=== PATIENT | female | born 1965 | race Caucasian/White ===

== ENCOUNTER 2021-08-20 06:53 | Outpatient (CLI) | payer OTHER, SELFPAY ==
[2021-08-20 07:24] LABS: Basophils Percent Auto 0.8 % (0.2-1.2); Eosinophils Absolute Auto 0.1 K/mm3 (0-0.3); Eosinophils Percent Auto 2.3 % (0-4.4); Hematocrit 41.1 % (37.0-47.0); Hemoglobin 13.5 g/dL (12.0-15.0); Hemoglobin A1C 8.9 % (<5.7); Immature Granulocyte Absolute 0.03 K/mm3 (0.00-0.031); Immature Granulocyte Percent A 0.6 % (0-0.5); Immature Platelet Fraction Pct 4.3 % (0.9-11.2); Lymphocytes Absolute Auto 1.61 K/mm3 (0.9-3.2); Lymphocytes Percent Auto 31.1 % (18.3-44.2); Mean Corpuscular HGB Conc 32.8 g/dl (32-36); Mean Corpuscular Hemoglobin 31.3 pg (26-34); Mean Corpuscular Volume 95.1 fl (80-100); Mean Platelet Volume 10.4 fl (7.4-10.4); Monocytes Absolute Auto 0.3 K/mm3 (0.1-0.6); Monocytes Percent Auto 6.2 % (2.6-8.5); Neutrophils Absolute Auto 3.1 K/mm3 (1.3-6.7); Platelet Count Result 134 k/mm3 (150-375); Red Blood Count 4.32 M/mm3 (4.2-5.4); Red Cell Distribution Width 13.2 % (11.5-14.5); White Blood Count 5.2 K/mm3 (4.5-10.0)
[2021-08-20 07:26] LABS: Prothrombin Time 13.4 Seconds (11.1-14.7)
[2021-08-20 07:28] LABS: Alanine Aminotransferase 122 U/L (4-35); Albumin Level 4.4 g/dL (3.5-5.1); Alkaline Phosphatase 136 U/L (38-126); Anion Gap 11 mmol/L (8-16); Aspartate Amino Transferase 103 U/L (14-36); Bilirubin,Total 0.6 mg/dL (0.2-1.3); Blood Urea Nitrogen 16 mg/dL (7-17); Carbon Dioxide 25 mmol/L (22-30); Chloride 98 mmol/L (98-107); Estimated Glomerular Filt Rate > 60; Glucose 295 mg/dL (65-110); Potassium 4.3 mmol/L (3.4-5.0); Sodium 134 mmol/L (137-145)
== END 2021-08-20 06:54 | disposition home or self-care (01) ==
PROVIDERS: PCP Family Medicine; Referring Provider Family Medicine; Visit Provider Internal Medicine Gastroenterology
DX: E11.9 Type 2 diabetes mellitus without complications (principal); I10 Essential (primary) hypertension; R53.83 Other fatigue; K76.0 Fatty (change of) liver, not elsewhere classified; R74.8 Abnormal levels of other serum enzymes
CPT/HCPCS: 36415; 80053; 83036; 84443; 85025; 85055; 85610

== ENCOUNTER 2021-09-20 06:34 | Outpatient (CLI) | payer OTHER, SELFPAY ==
[2021-09-20 07:59] LABS: Cholesterol 160 mg/dL (0-200); HDL Direct 26 mg/dL; Triglycerides 201 mg/dL (<150)
[2021-09-20 08:10] LABS: LDL Cholesterol Direct 96 mg/dL
[2021-09-20 08:12] LABS: Microalbumin Urine Random 9.3 mg/L (0-16.7)
[2021-09-20 08:15] LABS: Creatinine Urine 149.8 mg/dL; MALB Creatinine Ratio 6.2 mg/g (0-30)
== END 2021-09-20 06:35 | disposition home or self-care (01) ==
PROVIDERS: PCP Family Medicine; Visit Provider Internal Medicine Endocrinology, Diabetes & Metabolism
DX: E11.65 Type 2 diabetes mellitus with hyperglycemia (principal)
CPT/HCPCS: 36415; 80061; 82043

== ENCOUNTER 2021-11-29 11:42 | Outpatient (CLI) | payer OTHER, SELFPAY ==
[2021-11-29 12:27] LABS: Immunoglobulin A 307 mg/dL (70-400)
[2021-12-03 11:45] LABS: Tissue Transglutaminase IgA Ab 40.7 U/mL (<15.0)
[2021-12-03 20:56] LABS: Endomysial Ab (IgA) Screen Negative (Negative)
[2021-12-06 14:11] LABS: Endomysial Additional Testing Not Indicated
== END 2021-11-29 11:43 | disposition home or self-care (01) ==
LOC: ANHLAB 11:53
PROVIDERS: PCP Family Medicine
DX: K90.0 Celiac disease (principal)
CPT/HCPCS: 36415; 82784; 83516; 86255

== ENCOUNTER 2021-12-18 08:00 | Outpatient (RCR) | payer OTHER, SELFPAY ==
[2021-12-18 08:00] VITALS: BMI 26.9
[2021-12-18 08:04] VITALS: BMI 26.9
== END 2022-02-25 09:58 | disposition home or self-care (01) ==
LOC: ANHDMC 08:00
PROVIDERS: PCP Family Medicine; Visit Provider Nurse Practitioner Family
DX: E11.65 Type 2 diabetes mellitus with hyperglycemia (principal); Z71.89 Other specified counseling; Z71.3 Dietary counseling and surveillance
CPT/HCPCS: 97802; G0108

== ENCOUNTER 2022-02-14 12:03 | Outpatient (CLI) | payer OTHER, SELFPAY ==
[2022-02-14 13:05] LABS: Basophils Absolute Auto 0.1 K/mm3 (0.0-0.1); Basophils Percent Auto 0.7 % (0.2-1.2); Eosinophils Absolute Auto 0.1 K/mm3 (0-0.3); Eosinophils Percent Auto 1.5 % (0-4.4); Hematocrit 39.8 % (37.0-47.0); Hemoglobin 13.3 g/dL (12.0-15.0); Immature Granulocyte Absolute 0.02 K/mm3 (0.00-0.031); Immature Granulocyte Percent A 0.3 % (0-0.5); Lymphocytes Absolute Auto 2.15 K/mm3 (0.9-3.2); Lymphocytes Percent Auto 29.8 % (18.3-44.2); Mean Corpuscular HGB Conc 33.4 g/dl (32-36); Mean Corpuscular Hemoglobin 30.7 pg (26-34); Mean Corpuscular Volume 91.9 fl (80-100); Mean Platelet Volume 10.5 fl (7.4-10.4); Monocytes Absolute Auto 0.6 K/mm3 (0.1-0.6); Monocytes Percent Auto 8.2 % (2.6-8.5); Neutrophils Absolute Auto 4.3 K/mm3 (1.3-6.7); Neutrophils Percent Auto 59.5 % (45.5-73.1); Platelet Count Result 160 k/mm3 (150-375); Red Blood Count 4.33 M/mm3 (4.2-5.4); Red Cell Distribution Width 13.4 % (11.5-14.5); White Blood Count 7.2 K/mm3 (4.5-10.0)
[2022-02-14 13:16] LABS: INR 1.1; Prothrombin Time 13.8 Seconds (11.1-14.7)
[2022-02-14 13:31] LABS: Alanine Aminotransferase 40 U/L (6-35); Albumin Level 4.7 g/dL (3.5-5.1); Alkaline Phosphatase 76 U/L (38-126); Anion Gap 10 mmol/L (8-16); Aspartate Amino Transferase 43 U/L (14-36); Bilirubin,Total 0.7 mg/dL (0.2-1.3); Blood Urea Nitrogen 11 mg/dL (7-17); Calcium 9.8 mg/dL (8.4-10.2); Carbon Dioxide 32 mmol/L (22-30); Chloride 94 mmol/L (98-107); Estimated Glomerular Filt Rate > 60; Glucose 99 mg/dL (65-110); Potassium 3.4 mmol/L (3.4-5.0); Sodium 136 mmol/L (137-145)
[2022-02-19 17:37] LABS: Alpha Fetoprotein Tumor Marker 1.9 ng/mL (<6.1)
== END 2022-02-14 12:04 | disposition home or self-care (01) ==
LOC: ANHLAB 12:07
PROVIDERS: PCP Family Medicine; Visit Provider Family Medicine
DX: K75.81 Nonalcoholic steatohepatitis (NASH) (principal)
CPT/HCPCS: 36415; 80053; 82105; 85025; 85610

== ENCOUNTER 2022-08-27 06:34 | Outpatient (CLI) | payer OTHER, SELFPAY ==
[2022-08-27 07:31] LABS: Hematocrit 43.6 % (37.0-47.0); Hemoglobin 14.2 g/dL (12.0-15.0); Mean Corpuscular HGB Conc 32.6 g/dl (32-36); Mean Corpuscular Hemoglobin 29.8 pg (26-34); Mean Corpuscular Volume 91.6 fl (80-100); Mean Platelet Volume 9.9 fl (7.4-10.4); Platelet Count Result 164 k/mm3 (150-375); Red Blood Count 4.76 M/mm3 (4.2-5.4); Red Cell Distribution Width 13.7 % (11.5-14.5); White Blood Count 7.3 K/mm3 (4.5-10.0)
[2022-08-27 07:40] LABS: Alanine Aminotransferase 29 U/L (6-35); Albumin Level 4.7 g/dL (3.5-5.1); Alkaline Phosphatase 73 U/L (38-126); Anion Gap 6 mmol/L (8-16); Aspartate Amino Transferase 35 U/L (14-36); Blood Urea Nitrogen 13 mg/dL (7-17); Calcium 9.8 mg/dL (8.4-10.2); Carbon Dioxide 31 mmol/L (22-30); Chloride 104 mmol/L (98-107); Cholesterol 103 mg/dL (0-200); Estimated Glomerular Filt Rate > 60; Glucose 116 mg/dL (65-110); HDL Direct 37 mg/dL; Potassium 4.8 mmol/L (3.4-5.0); Sodium 141 mmol/L (137-145); Triglycerides 168 mg/dL (<150)
[2022-08-27 07:51] LABS: LDL Cholesterol Direct 42 mg/dL
[2022-08-27 08:06] LABS: Creatinine Urine 159.5 mg/dL
[2022-08-27 08:10] LABS: Thyroid Stimulating Hormone 0.697 uIU/mL (0.465-4.680)
[2022-08-27 08:11] LABS: MALB Creatinine Ratio 7.2 mg/g (0-30); Microalbumin Urine Random 11.5 mg/L (0-16.7)
[2022-08-27 08:21] LABS: Free T4 Free Thyroxine 1.08 ng/mL (0.78-2.19); Vitamin D 25 Hydroxy 27.1 ng/mL
[2022-08-31 17:27] LABS: Alpha Fetoprotein Tumor Marker 2.4 ng/mL (<6.1)
== END 2022-08-27 06:35 | disposition home or self-care (01) ==
PROVIDERS: PCP Nurse Practitioner Family; Referring Provider Internal Medicine Gastroenterology; Visit Provider Nurse Practitioner Family
DX: E11.65 Type 2 diabetes mellitus with hyperglycemia (principal); E78.5 Hyperlipidemia, unspecified; K75.81 Nonalcoholic steatohepatitis (NASH); K74.60 Unspecified cirrhosis of liver
CPT/HCPCS: 36415; 80053; 80061; 82043; 82105; 82306; 82607; 84439; 84443; 85027

== ENCOUNTER 2022-11-29 16:10 | Emergency (ER) | payer OTHER, SELFPAY ==
--- NOTE | ~2022-11-29 | XR_ITS ---
EXAM: XR shoulder RT min 2V DATE: 11/29/2022 17:55 HISTORY: R shoulder pain with pop FROM FALL . COMPARISON: None available. FINDINGS: Normal mineralization. Ill-defined lucency about the greater tuberosity. No lytic or blast ic lesion. Joint spaces are maintained. No erosion or periosteal change. Soft tissues within normal l imits. IMPRESSION: Possible nondisplaced greater tuberosity fracture. Reviewed, dictated and finalized at location K.
--- NOTE | ~2022-11-29 | XR_ITS ---
EXAM: XR elbow RT 2V DATE: 11/29/2022 17:55 HISTORY: right elbow pain FROM FALL . COMPARISON: None available. FINDINGS: Normal mineralization. Subtle, nondisplaced radial head fracture. No lytic or blastic lesi on. Joint spaces are maintained. No erosion or periosteal change. Soft tissues within normal limits. IMPRESSION: Nondisplaced right radial head fracture. Reviewed, dictated and finalized at location K.
--- NOTE | ~2022-11-29 | XR_ITS ---
EXAM: XR wrist RT min 3V DATE: 11/29/2022 17:55 HISTORY: right wrist pain FROM FALL . COMPARISON: None available. FINDINGS: Decreased mineralization. No fracture or dislocation. No lytic or blastic lesion. Joint sp aces are maintained. No erosion or periosteal change. Soft tissues within normal limits. IMPRESSION: No acute osseous finding in the right wrist. Reviewed, dictated and finalized at location K.
[2022-11-29 16:10] VITALS: BP 133/93; PULSE 106; RESP 15; TEMP 36.9; O2SAT 99
--- NOTE | 2022-11-29 17:15 | ED.GENADULT ---
HPI - General Adult General Chief complaint: Extremity Injury, Upper <SHENG Sainz Last Filed: 11/29/22 19:46> Stated complaint: fall, RIGHT shoulder pain <SHENG Sainz Last Filed: 11/29/22 19:46> Time Seen by Provider: 11/29/22 16:20 <SHENG Sainz Last Filed: 11/29/22 19:46> Source: patient <SHENG Sainz Last Filed: 11/29/22 19:46> Mode of arrival: ambulatory <SHENG Sainz Last Filed: 11/29/22 19:46> Limitations: no limitations <SHENG Sainz Last Filed: 11/29/22 19:46> History of Present Illness HPI narrative: This is a 57-year-old female with PMH of type 2 diabetes who presents to the ED with chief complaint of right shoulder injury occurring just prior to arrival. Patient states she tripped over a wire on her trailer hitch and had to catch herself on the garage with the right arm. States that when she braced herself on the ground she felt a pop. Reports subsequent right shoulder pain, right elbow pain, right wrist pain. Pain is most notable in the right shoulder. <SHENG Sainz Last Filed: 11/29/22 19:46> Related Data Home medications: Home Medications Medication Instructions Recorded Confirmed omeprazole 40 mg capsule,delayed 40 mg PO DAILY 12/25/21 08/04/22 release amitriptyline 25 mg tablet 50 mg PO QHS 04/01/22 08/04/22 atenolol 50 mg tablet 50 mg PO DAILY 04/01/22 08/04/22 <SHENG Sainz Last Filed: 11/29/22 19:46> Allergies/adverse reactions: Allergies Allergy/AdvReac Type Severity Reaction Status Date / Time No Known Allergies Allergy Verified 08/04/22 08:13 <SHENG Sainz Last Filed: 11/29/22 19:46> Review of Systems Review of Systems: CONSTITUTIONAL: Denies fever, chills, or sweats. EYES: Denies visual changes, redness, or discharge. ENT: Denies rhinorrhea, congestion, sore throat, or otalgia. CARDIOVASCULAR: Denies chest pain, palpitations, or edema. RESPIRATORY: Denies cough or dyspnea. GASTROINTESTINAL: Denies abdominal pain, nausea, vomiting, or diarrhea. GENITOURINARY: Denies dysuria or hematuria. SKIN: Denies rash or itching. MUSCULOSKELETAL: Denies back pain, joint pain, or myalgia. NEUROLOGIC: Denies headache, numbness, dizziness, or weakness. PSYCHIATRIC: Denies anxiety or depression. <Justin Childress PA-C - Last Filed: 11/29/22 19:46> PMFSH Past Medical History Medical History: Medical History Celiac disease Cirrhosis of liver Diabetes mellitus type II, uncontrolled H/O: HTN (hypertension) Headache, migraine Hemorrhoidal skin tag Hyperglycemia Hyperlipidemia LDL goal <100 WORTHY (nonalcoholic steatohepatitis) Type 2 diabetes mellitus with hyperglycemia <Justin Childress PA-C - Last Filed: 11/29/22 19:46> Surgical History Surgical History: Surgical History H/O abdominoplasty H/O breast augmentation History of cholecystectomy History of endoscopy 11/22/21, upper <Justin Childress PA-C - Last Filed: 11/29/22 19:46> Family History Family History: Family History Other AA (alcohol abuse) Anxiety Cancer Cerebrovascular accident Depression H/O: HTN (hypertension) Heart problem Thyroid disease <Justin Childress PA-C - Last Filed: 11/29/22 19:46> Social History Social History: Social History Smoking status: Never smoker Alcohol intake: never Substance use: never Spiritual care concerns: No <Justin Childress PA-C - Last Filed: 11/29/22 19:46> Exam Narrative: GENERAL: Well-appearing, well-nourished, and in no acute distress. HEAD: Normocephalic, atraumatic. EYES: PERRLA and EOMI. ENT: Nares clear, no rhinorrhea or epistaxis. Mucous membranes moist. Oropharynx without tonsillar hypert
[2022-11-29] MEDS: HYDROcodone/acetaminophen (*CRX) 7.5-325 MG TABLET 1 TAB PO (17:22)
== END 2022-11-29 19:02 | disposition home or self-care (01) ==
PROVIDERS: Emergency Provider Physician Assistant; PCP Nurse Practitioner
DX: S42.254A Nondisplaced fracture of greater tuberosity of right humerus, initial encounter for closed fracture (principal); S52.124A Nondisplaced fracture of head of right radius, initial encounter for closed fracture; W18.49XA Other slipping, tripping and stumbling without falling, initial encounter; I10 Essential (primary) hypertension; E11.9 Type 2 diabetes mellitus without complications; E78.5 Hyperlipidemia, unspecified; K75.81 Nonalcoholic steatohepatitis (NASH); K74.60 Unspecified cirrhosis of liver; K90.0 Celiac disease; Z79.84 Long term (current) use of oral hypoglycemic drugs
CPT/HCPCS: 73030; 73070; 73110; 99284; A9270

== ENCOUNTER 2023-01-07 09:36 | Outpatient (CLI) | payer OTHER, SELFPAY ==
[2023-01-07 10:45] LABS: Anion Gap 10 mmol/L (8-16); Blood Urea Nitrogen 8 mg/dL (7-17); Calcium 9.4 mg/dL (8.4-10.2); Carbon Dioxide 30 mmol/L (22-30); Chloride 101 mmol/L (98-107); Estimated Glomerular Filt Rate > 60; Glucose 114 mg/dL (65-110); Potassium 4.2 mmol/L (3.4-5.0); Sodium 141 mmol/L (137-145)
[2023-01-07 11:44] LABS: Vitamin D 25 Hydroxy 32.3 ng/mL
[2023-01-11 13:55] LABS: C-Peptide 1.65 ng/mL (0.80-3.85)
[2023-01-12 07:33] LABS: Glutamic acid decarboxylase AA <5 IU/mL (<5)
[2023-01-23 22:38] LABS: Islet Cell Antibody Screen NEGATIVE (NEGATIVE)
== END 2023-01-07 09:37 | disposition home or self-care (01) ==
PROVIDERS: Visit Provider Nurse Practitioner Family
DX: E11.65 Type 2 diabetes mellitus with hyperglycemia (principal)
CPT/HCPCS: 36415; 80048; 82306; 84681; 86341

== ENCOUNTER 2023-02-06 12:12 | Outpatient (CLI) | payer OTHER, SELFPAY ==
--- NOTE | ~2023-02-06 | MR_ITS ---
EXAMINATION: MR shoulder RT wo con DATE: 02/06/2023 13:12 INDICATION: S42.251A - Displaced fracture of greater tuberosity of ri... . TECHNIQUE: Magnetic resonance imaging (MRI) of the shoulder was performed without intravenous contras t. Sequences included axial PD-weighted FS FSE, coronal oblique PD-weighted FS FSE and T2-weighted FS FSE, and sagittal oblique T2-weighted FS FSE and T1-weighted FSE. COMPARISON: X-ray right shoulder 01/07/2023, 12/19/2022, 11/29/2022. FINDINGS: Coracoacromial arch: Flat acromial undersurface (type I acromion). No significant anterolateral downsloping. Minimal acrom ial tip enthesopathy and minimal inferiorly directed osteophytosis. Rotator cuff: Mild thickening and moderate high signal within the distal aspect of the supraspinatus and infraspino us tendons. Abnormal signal along the origin of the proximal aspect of the supraspinatus muscle may r epresent mild strain. Tiny, focal partial thickness tear in the articular side of the infraspinatus t endon. Intact subscapularis and teres minor. Biceps tendon and glenoid labrum: Long head of biceps tendon is intact. No labral tear. Mild degenerative signal change in the labrum. Fluid: Trace subacromial subdeltoid fluid. Bones/cartilage: Mild AC joint hypertrophy. Mild degenerative change at the glenohumeral joint. No suspicious focal or diffuse marrow signal. IMPRESSION: 1. Moderate superior cuff tendinopathy, with a small, pinpoint articular sided partial-thickness tear of the infraspinatus and possible supraspinatus strain. 2. Mild subacromial/subdeltoid bursitis. 3. Mild polyarticular osteoarthritis. 4. No acute fracture detected. Reviewed, dictated and finalized at location K.
== END 2023-02-06 12:13 | disposition home or self-care (01) ==
LOC: ANHIMG 12:16
PROVIDERS: Visit Provider Orthopaedic Surgery
DX: S42.251A Displaced fracture of greater tuberosity of right humerus, initial encounter for closed fracture (principal); X58.XXXA Exposure to other specified factors, initial encounter; M19.011 Primary osteoarthritis, right shoulder; M75.51 Bursitis of right shoulder
CPT/HCPCS: 73221

== ENCOUNTER 2023-03-23 16:07 | Outpatient (CLI) | payer OTHER, SELFPAY ==
[2023-03-23 17:04] LABS: NT Pro B Type Natriuretic Pept 20 pg/mL (19.9-100)
[2023-03-23 17:22] LABS: Creatinine Urine 86.4 mg/dL
[2023-03-23 17:26] LABS: MALB Creatinine Ratio 8.3 mg/g (0-30); Microalbumin Urine Random 7.2 mg/L (0-16.7)
== END 2023-03-23 16:08 | disposition home or self-care (01) ==
LOC: ANHLAB 16:10
PROVIDERS: Visit Provider Nurse Practitioner
DX: M25.471 Effusion, right ankle (principal); M25.474 Effusion, right foot; M25.475 Effusion, left foot; M25.472 Effusion, left ankle; E11.9 Type 2 diabetes mellitus without complications
CPT/HCPCS: 36415; 82043; 83880

== ENCOUNTER 2023-04-22 06:52 | Outpatient (CLI) | payer OTHER, SELFPAY ==
[2023-04-22 08:12] LABS: Basophils Absolute Auto 0.1 K/mm3 (0.0-0.1); Basophils Percent Auto 0.7 % (0.2-1.2); Eosinophils Absolute Auto 0.2 K/mm3 (0-0.3); Eosinophils Percent Auto 2.2 % (0-4.4); Hemoglobin 13.1 g/dL (12.0-15.0); Immature Granulocyte Absolute 0.03 K/mm3 (0.00-0.031); Immature Granulocyte Percent A 0.3 % (0-0.5); Lymphocytes Absolute Auto 2.83 K/mm3 (0.9-3.2); Mean Corpuscular Hemoglobin 29.5 pg (26-34); Mean Corpuscular Volume 92.3 fl (80-100); Mean Platelet Volume 9.7 fl (7.4-10.4); Monocytes Absolute Auto 0.6 K/mm3 (0.1-0.6); Neutrophils Absolute Auto 4.9 K/mm3 (1.3-6.7); Neutrophils Percent Auto 56.8 % (45.5-73.1); Platelet Count Result 193 k/mm3 (150-375); Red Blood Count 4.44 M/mm3 (4.2-5.4); Red Cell Distribution Width 13.4 % (11.5-14.5); White Blood Count 8.6 K/mm3 (4.5-10.0)
[2023-04-22 08:23] LABS: Prothrombin Time 13.5 Seconds (11.1-14.7)
[2023-04-22 08:30] LABS: Alanine Aminotransferase 25 U/L (6-35); Albumin Level 4.6 g/dL (3.5-5.1); Alkaline Phosphatase 58 U/L (38-126); Anion Gap 7 mmol/L (8-16); Aspartate Amino Transferase 32 U/L (14-36); Bilirubin,Total 0.8 mg/dL (0.2-1.3); Blood Urea Nitrogen 10 mg/dL (7-17); Calcium 9.5 mg/dL (8.4-10.2); Carbon Dioxide 32 mmol/L (22-30); Chloride 96 mmol/L (98-107); Estimated Glomerular Filt Rate > 60; Glucose 107 mg/dL (65-110); Potassium 4.1 mmol/L (3.4-5.0); Sodium 135 mmol/L (137-145)
[2023-04-28 14:21] LABS: Alpha Fetoprotein Tumor Marker 1.8 ng/mL (<6.1)
== END 2023-04-22 06:53 | disposition home or self-care (01) ==
LOC: ANHLAB 06:54
PROVIDERS: Visit Provider Internal Medicine Gastroenterology
DX: K75.81 Nonalcoholic steatohepatitis (NASH) (principal); K74.60 Unspecified cirrhosis of liver
CPT/HCPCS: 36415; 80053; 82105; 85025; 85610

== ENCOUNTER 2023-05-19 06:48 | Outpatient (CLI) | payer OTHER, SELFPAY ==
[2023-05-19 07:46] LABS: Alanine Aminotransferase 35 U/L (6-35); Albumin Level 4.4 g/dL (3.5-5.1); Alkaline Phosphatase 62 U/L (38-126); Anion Gap 6 mmol/L (8-16); Aspartate Amino Transferase 43 U/L (14-36); Blood Urea Nitrogen 11 mg/dL (7-17); Calcium 9.1 mg/dL (8.4-10.2); Carbon Dioxide 34 mmol/L (22-30); Chloride 97 mmol/L (98-107); Cholesterol 101 mg/dL (0-200); Estimated Glomerular Filt Rate > 60; Glucose 121 mg/dL (65-110); HDL Direct 33 mg/dL; Potassium 3.9 mmol/L (3.4-5.0); Sodium 137 mmol/L (137-145); Triglycerides 153 mg/dL (<150)
[2023-05-19 07:57] LABS: LDL Cholesterol Direct 48 mg/dL
[2023-05-19 08:03] LABS: Creatinine Urine 195.9 mg/dL
[2023-05-19 08:07] LABS: MALB Creatinine Ratio 8.8 mg/g (0-30); Microalbumin Urine Random 17.2 mg/L (0-16.7)
[2023-05-19 08:16] LABS: Free T4 Free Thyroxine 1.21 ng/mL (0.78-2.19); Vitamin D 25 Hydroxy 39.6 ng/mL
== END 2023-05-19 06:49 | disposition home or self-care (01) ==
PROVIDERS: PCP Nurse Practitioner; Visit Provider Nurse Practitioner Family
DX: E11.65 Type 2 diabetes mellitus with hyperglycemia (principal); E78.5 Hyperlipidemia, unspecified; K75.81 Nonalcoholic steatohepatitis (NASH); K90.0 Celiac disease
CPT/HCPCS: 36415; 80053; 80061; 82043; 82306; 82607; 84439; 84443

== ENCOUNTER 2023-06-11 06:50 | Outpatient (CLI) | payer OTHER, SELFPAY ==
[2023-06-11 07:41] LABS: Basophils Percent Auto 0.6 % (0.2-1.2); Eosinophils Absolute Auto 0.1 K/mm3 (0-0.3); Eosinophils Percent Auto 1.2 % (0-4.4); Hematocrit 36.5 % (37.0-47.0); Hemoglobin 11.2 g/dL (12.0-15.0); Immature Granulocyte Absolute 0.02 K/mm3 (0.00-0.031); Immature Granulocyte Percent A 0.3 % (0-0.5); Immature Platelet Fraction Pct 3.8 % (0.9-11.2); Lymphocytes Absolute Auto 3.72 K/mm3 (0.9-3.2); Lymphocytes Percent Auto 57.3 % (18.3-44.2); Mean Corpuscular HGB Conc 30.7 g/dl (32-36); Mean Corpuscular Volume 94.6 fl (80-100); Monocytes Absolute Auto 0.6 K/mm3 (0.1-0.6); Monocytes Percent Auto 8.9 % (2.6-8.5); Neutrophils Absolute Auto 2.1 K/mm3 (1.3-6.7); Neutrophils Percent Auto 31.7 % (45.5-73.1); Platelet Count Result 142 k/mm3 (150-375); Red Blood Count 3.86 M/mm3 (4.2-5.4); Red Cell Distribution Width 15.6 % (11.5-14.5); White Blood Count 6.5 K/mm3 (4.5-10.0)
[2023-06-11 07:52] LABS: Alanine Aminotransferase 40 U/L (6-35); Albumin Level 4.3 g/dL (3.5-5.1); Alkaline Phosphatase 75 U/L (38-126); Anion Gap 4 mmol/L (8-16); Aspartate Amino Transferase 47 U/L (14-36); Blood Urea Nitrogen 8 mg/dL (7-17); Calcium 9.5 mg/dL (8.4-10.2); Carbon Dioxide 32 mmol/L (22-30); Chloride 99 mmol/L (98-107); Cholesterol 93 mg/dL (0-200); Estimated Glomerular Filt Rate > 60; Glucose 100 mg/dL (65-110); HDL Direct 27 mg/dL; Sodium 135 mmol/L (137-145); Triglycerides 127 mg/dL (<150)
[2023-06-11 08:00] LABS: NT Pro B Type Natriuretic Pept 28 pg/mL (19.9-100)
[2023-06-11 08:03] LABS: LDL Cholesterol Direct 46 mg/dL
[2023-06-11 08:05] LABS: Creatinine Urine 80.5 mg/dL
[2023-06-11 08:11] LABS: Vitamin D 25 Hydroxy 41.4 ng/mL
[2023-06-11 08:11] LABS: MALB Creatinine Ratio 11.2 mg/g (0-30)
== END 2023-06-11 06:51 | disposition home or self-care (01) ==
LOC: ANHLAB 06:52
PROVIDERS: PCP Nurse Practitioner; Visit Provider Nurse Practitioner
DX: R01.1 Cardiac murmur, unspecified (principal); M79.89 Other specified soft tissue disorders; M25.471 Effusion, right ankle; M25.474 Effusion, right foot; M25.475 Effusion, left foot; M25.472 Effusion, left ankle; E11.9 Type 2 diabetes mellitus without complications
CPT/HCPCS: 36415; 80053; 80061; 82043; 82306; 83036; 83880; 84443; 85025; 85055

== ENCOUNTER 2023-10-17 10:38 | Outpatient (CLI) | payer OTHER, SELFPAY ==
[2023-10-17 11:01] LABS: Basophils Percent Auto 0.6 % (0.2-1.2); Eosinophils Absolute Auto 0.1 K/mm3 (0-0.3); Eosinophils Percent Auto 2.1 % (0-4.4); Hematocrit 39.2 % (37.0-47.0); Hemoglobin 12.3 g/dL (12.0-15.0); Immature Granulocyte Absolute 0.01 K/mm3 (0.00-0.031); Immature Granulocyte Percent A 0.2 % (0-0.5); Lymphocytes Absolute Auto 2.61 K/mm3 (0.9-3.2); Lymphocytes Percent Auto 49.9 % (18.3-44.2); Mean Corpuscular HGB Conc 31.4 g/dl (32-36); Mean Corpuscular Hemoglobin 29.1 pg (26-34); Mean Corpuscular Volume 92.7 fl (80-100); Mean Platelet Volume 9.3 fl (7.4-10.4); Monocytes Absolute Auto 0.4 K/mm3 (0.1-0.6); Monocytes Percent Auto 7.1 % (2.6-8.5); Neutrophils Absolute Auto 2.1 K/mm3 (1.3-6.7); Neutrophils Percent Auto 40.1 % (45.5-73.1); Platelet Count Result 152 k/mm3 (150-375); Red Blood Count 4.23 M/mm3 (4.2-5.4); Red Cell Distribution Width 14.9 % (11.5-14.5); White Blood Count 5.2 K/mm3 (4.5-10.0)
[2023-10-17 11:11] LABS: INR 1.1; Prothrombin Time 14.5 Seconds (11.1-14.7)
[2023-10-17 11:13] LABS: Alanine Aminotransferase 28 U/L (6-35); Albumin Level 4.2 g/dL (3.5-5.1); Alkaline Phosphatase 60 U/L (38-126); Anion Gap 6 mmol/L (8-16); Aspartate Amino Transferase 40 U/L (14-36); Bilirubin,Total 0.8 mg/dL (0.2-1.3); Blood Urea Nitrogen 10 mg/dL (7-17); Calcium 9.8 mg/dL (8.4-10.2); Carbon Dioxide 29 mmol/L (22-30); Chloride 102 mmol/L (98-107); Estimated Glomerular Filt Rate > 60; Glucose 91 mg/dL (65-110); Potassium 4.2 mmol/L (3.4-5.0); Sodium 137 mmol/L (137-145)
[2023-10-22 15:01] LABS: Alpha Fetoprotein Tumor Marker 1.8 ng/mL (<6.1)
== END 2023-10-17 10:39 | disposition home or self-care (01) ==
LOC: ANHLAB 10:41
PROVIDERS: PCP Nurse Practitioner; Visit Provider Internal Medicine Gastroenterology
DX: K75.81 Nonalcoholic steatohepatitis (NASH) (principal)
CPT/HCPCS: 36415; 80053; 82105; 85025; 85610

== ENCOUNTER 2024-04-26 15:47 | Outpatient (CLI) | payer OTHER, SELFPAY ==
[2024-04-26 16:13] LABS: Basophils Percent Auto 0.5 % (0.2-1.2); Eosinophils Absolute Auto 0.1 K/mm3 (0-0.3); Hematocrit 40.6 % (37.0-47.0); Hemoglobin 13.1 g/dL (12.0-15.0); Immature Granulocyte Absolute 0.01 K/mm3 (0.00-0.031); Immature Granulocyte Percent A 0.2 % (0-0.5); Lymphocytes Absolute Auto 2.59 K/mm3 (0.9-3.2); Lymphocytes Percent Auto 42.5 % (18.3-44.2); Mean Corpuscular HGB Conc 32.3 g/dl (32-36); Mean Corpuscular Hemoglobin 29.3 pg (26-34); Mean Corpuscular Volume 90.8 fl (80-100); Mean Platelet Volume 9.7 fl (7.4-10.4); Monocytes Absolute Auto 0.4 K/mm3 (0.1-0.6); Monocytes Percent Auto 6.4 % (2.6-8.5); Neutrophils Percent Auto 49.4 % (45.5-73.1); Platelet Count Result 162 k/mm3 (150-375); Red Blood Count 4.47 M/mm3 (4.2-5.4); Red Cell Distribution Width 13.8 % (11.5-14.5); White Blood Count 6.1 K/mm3 (4.5-10.0)
[2024-04-26 16:24] LABS: INR 1.1
[2024-04-26 16:25] LABS: Alanine Aminotransferase 32 U/L (6-35); Albumin Level 4.6 g/dL (3.5-5.1); Alkaline Phosphatase 76 U/L (38-126); Anion Gap 10 mmol/L (4-12); Aspartate Amino Transferase 42 U/L (14-36); Bilirubin,Total 0.9 mg/dL (0.2-1.3); Blood Urea Nitrogen 10 mg/dL (7-17); Calcium 9.5 mg/dL (8.4-10.2); Carbon Dioxide 29 mmol/L (22-30); Chloride 97 mmol/L (98-107); Estimated Glomerular Filt Rate > 60; Glucose 201 mg/dL (65-110); Sodium 136 mmol/L (137-145)
[2024-04-29 11:33] LABS: Alpha Fetoprotein Tumor Marker 1.5 ng/mL
== END 2024-04-26 15:48 | disposition home or self-care (01) ==
LOC: ANHLAB 15:50
PROVIDERS: PCP Nurse Practitioner; Visit Provider Internal Medicine Gastroenterology
DX: K90.0 Celiac disease (principal); K75.81 Nonalcoholic steatohepatitis (NASH)
CPT/HCPCS: 36415; 80053; 82105; 85025; 85610

== ENCOUNTER 2024-05-14 08:54 | Outpatient (CLI) | payer OTHER, SELFPAY ==
[2024-05-14 09:53] LABS: Cholesterol 80 mg/dL (0-200); HDL Direct 32 mg/dL; Triglycerides 91 mg/dL (<150)
[2024-05-14 09:59] LABS: Microalbumin Urine Random 20.4 mg/L (0-16.7)
[2024-05-14 10:04] LABS: LDL Cholesterol Direct 32 mg/dL
[2024-05-14 10:08] LABS: Creatinine Urine 90.5 mg/dL; MALB Creatinine Ratio 22.5 mg/g (0-30)
[2024-05-14 10:34] LABS: Free T4 Free Thyroxine 0.94 ng/mL (0.78-2.19); Vitamin D 25 Hydroxy 48.4 ng/mL
[2024-05-21 18:43] LABS: Thyroid Stimulating Immunoglob <89 % baseline (<140)
== END 2024-05-14 08:55 | disposition home or self-care (01) ==
LOC: ANHLAB 08:55
PROVIDERS: PCP Nurse Practitioner; Visit Provider Nurse Practitioner Family
DX: E11.9 Type 2 diabetes mellitus without complications (principal); K75.81 Nonalcoholic steatohepatitis (NASH); E78.5 Hyperlipidemia, unspecified; K90.0 Celiac disease
CPT/HCPCS: 36415; 80061; 82043; 82306; 82607; 84439; 84445

== ENCOUNTER 2024-06-20 16:36 | Outpatient (CLI) | payer OTHER, SELFPAY ==
[2024-06-20 18:01] LABS: Iron 75 ug/dL (37-170)
[2024-06-20 18:11] LABS: Percent Iron Saturation 19 % (20-50)
== END 2024-06-20 16:37 | disposition home or self-care (01) ==
PROVIDERS: PCP Nurse Practitioner
DX: R53.83 Other fatigue (principal)
CPT/HCPCS: 36415; 83540; 83550

== ENCOUNTER 2024-11-16 11:01 | Outpatient (CLI) | payer OTHER, SELFPAY ==
[2024-11-16 11:40] LABS: Basophils Percent Auto 0.5 % (0.2-1.2); Eosinophils Absolute Auto 0.1 K/mm3 (0-0.3); Eosinophils Percent Auto 1.5 % (0-4.4); Hematocrit 42.5 % (37.0-47.0); Hemoglobin 13.7 g/dL (12.0-15.0); Immature Granulocyte Absolute 0.02 K/mm3 (0.00-0.031); Immature Granulocyte Percent A 0.3 % (0-0.5); Lymphocytes Percent Auto 50.7 % (18.3-44.2); Mean Corpuscular HGB Conc 32.2 g/dl (32-36); Mean Corpuscular Hemoglobin 28.8 pg (26-34); Mean Corpuscular Volume 89.5 fl (80-100); Mean Platelet Volume 9.9 fl (7.4-10.4); Monocytes Absolute Auto 0.3 K/mm3 (0.1-0.6); Monocytes Percent Auto 4.6 % (2.6-8.5); Neutrophils Absolute Auto 2.6 K/mm3 (1.3-6.7); Neutrophils Percent Auto 42.4 % (45.5-73.1); Platelet Count Result 177 k/mm3 (150-375); Red Blood Count 4.75 M/mm3 (4.2-5.4); Red Cell Distribution Width 13.2 % (11.5-14.5); White Blood Count 6.1 K/mm3 (4.5-10.0)
[2024-11-16 11:57] LABS: Prothrombin Time 14.1 Seconds (11.1-14.7)
[2024-11-16 11:58] LABS: Alanine Aminotransferase 20 U/L (6-35); Albumin Level 4.6 g/dL (3.5-5.1); Alkaline Phosphatase 72 U/L (38-126); Anion Gap 9 mmol/L (4-12); Aspartate Amino Transferase 24 U/L (14-36); Bilirubin,Total 0.5 mg/dL (0.2-1.3); Blood Urea Nitrogen 5 mg/dL (7-17); Carbon Dioxide 29 mmol/L (22-30); Chloride 102 mmol/L (98-107); Estimated Glomerular Filt Rate > 60; Glucose 98 mg/dL (65-110); Potassium 4.6 mmol/L (3.4-5.0); Sodium 140 mmol/L (137-145)
--- OUTSIDE RECORDS SUMMARY | 2024-11-16 12:43 | XMS_ITS | Clinical Summary ---
Author Organization [facility] Address [address] [place] [address] Care Team Providers Care Welt Stitcher Name Role Phone Meena Block RONY-JIG FITTER Primary Care Provider [phone] Source Comments [facility],non-owned Affiliates and Associated Physician Practices is amultiple site organization consisting of ambulatory clinics and hospital sitesin [place], [place], [place] and [place]. This disclosure is being madepursuant to the Care Everywhere program and may not contain all information available regarding this patient. Last updated 18.[facility] Allergies No known active allergies Medications * Be aware that medications may not be up to date on this document. Alwaysverify current medications with the patient. Medication Sig Dispensed Refills Start Date End Date Status metFORMIN (GLUCOPHAGE) 1000 MG tablet Take 1 (one) tablet by mouth 2 times daily with morning and evening meal Active losartan (COZAAR) 25 MG tabletIndications :Hypertension Take 2 (two) tablets by mouth once daily Reasons: High Blood Pressure Disorder Active rosuvastatin (CRESTOR) 5 MG tablet Take 2 (two) tablets by mouth at bedtime Active furosemide (Lasix) 20 MG tablet Take 1 (one) tablet by mouth once daily as needed 10/25/2023 Active Ozempic, 2 MG/DOSE, 8 MG/3ML pen INJECT 1 SYRINGE SUBCUTANEOUSLY ONCE A WEEK 10/20/2023 Active vitamin D, cholecalciferol, 50 MCG (1999 UT) tablet Take 1 (one) tablet by mouth once daily Active omeprazole (PriLOSEC) 40 MG capsule TAKE 1 CAPSULE BY MOUTH ONCE DAILY 15-30 MINUTES BEFORE A MEAL 90 capsule 1 08/01/2024 Active Active Problems Problem Noted Date Diagnosed Date NAFLD (nonalcoholic fatty liver disease) 020 Overview (09/09/2022): 07/12/20 Fibroscan CAP 320, LSM 11.0 kPa 09/10/21 Fibroscan CAP 320, LSM 21.8 kPa 02/25/22 Fibroscan CAP 285, LSM 15.0 kPa 09/09/22 Fibroscan CAP 344, LSM 17.8 kPa Elevated ferritin 12/30/2018 Elevated liver enzymes 12/30/2018 Migraine 02/26/2012 HTN (hypertension) 02/26/2012 Hypercholesteremia 02/26/2012 Immunizations Name Administration Dates Next Due COVID RK PRIMARY 18+YR 11/28/2020 Covid Silviaa primary monovalent 12+ yr 0.5mL Family History Medical History Relation Name Comments Diabetes Father Hypercholesterolemia Father Hypertension Father Cancer - Other Sister Seizures Sister Thyroid Disease Sister Relation Name Status Comments Father Alive Mother Alive Sister Alive Social History Tobacco Use Types Packs/Day Years Used Date Smoking Tobacco: Never Smokeless Tobacco: Never Tobacco Cessation:Counseling Given: Not Answered Alcohol Use Standard Drinks/Week Comments Not Currently 0 (1 standard drink = 0.6 oz pur e alcohol) ABSTINENT MAY 2021 AUDIT-C Answer Date Recorded Q1: How often do you have a drink containing alc ohol? Never 11/22/2021 Average Number of Drinks Not on file 022 Q3: How often do you have si x or more drinks on one occasion? Never 11/22/2021 Sex and Gender Information Value Date Recorded Sex Assigned at Not on file Gender Identity Not on file Sexual Orientation Not on file Last Filed Vital Signs Vital Sign Reading Time Taken Comments Blood Pressure 129/95 05/03/2024 10:03 AM CDT Pulse 106 05/03/2024 10:03 AM CDT Temperature 36.6 C (97.9 F) 10/27/2023 10:23 AM TANK TRUCK ENGINE MECHANIC Respiratory Rate 18 10/27/2023 10:23 AM TANK TRUCK ENGINE MECHANIC Oxygen Saturation 100% 05/03/2024 10:03 AM CDT Inhaled Oxygen Concentration - - Weight 67.4 kg (148 lb 9.6 oz) 05/03/2024 10:03 AM CDT Height 165.1 cm (5' 5 ) 05/03/2024 10:03 AM CDT Body Mass Index 24.73 05/03/2024 10:03 AM CDT Plan of Treatment Upcoming Encounters Date Type Department Care Team (Late st Contact Info) Description 11/28/2024 12:30 PM CDT Appointment [facility] [address] [place] [address] Abel Adam MD [address] [place] [address] [address] [place] [address] 11/28/2024 1:30 PM CDT Procedure visit [facility] [address] [place] [phone] 11/28/2024 2:00 PM CDT Office Visit [facility] [address] [place] [phone] Aebl Adam MD [address] [place] [address] [address] [place] [address] Health Maintenance Due Date Last Done Comments COLOGUARD (AGES 45-75) - COLON CA SCREENING 1967 COLON MONITORING 1967 COLONOSCOPY - COLON CA SCREENING 1967 CT COLONOGRAPHY - COLON CA SCREENING 1967 Colorectal Cancer Screening 1967 FIT - COLON CA SCREENING 1967 FLEX SIG - COLON CA SCREENING 1967 PAP SMEAR 1967 HIV SCREENING 1982 DTAP/TDAP/TD VACCINES (1 - Tdap) 1986 HEPATITIS B VACCINE (1 of 3 - 19+ 3-dose series) 1986 PNEUMOCOCCAL VACCINE 50+ (1 of 2 - PCV) 1986 ZOSTER VACCINE (1 of 2) 2017 COVID-19 VACCINE ( season) 2024 07/15/2021, 11/28/2020 INFLUENZA VACCINE (#1) 2024 DEPRESSION SCREENING 08/24/2024 MAMMOGRAM 08/14/2025 08/14/2023, 07/25, 05/23/2022, Additional history exists HEPATITIS C SCREENING Completed 03/20/2016 HIB VACCINE Aged Out No longer eligi ble based on patient's age to complete this topic HPV VACCINE Aged Out No longer eligi ble based on patient's age to complete this topic MENINGOCOCCAL (Group B) VACCINE SHARED DECISION-MAKING Aged Out No longer eligible based on patient's age to complete this topic MENINGOCOCCAL GROUPS A/C/Y/W VACCINE Aged Out No longer eligible based on patient's age to complete this topic Goals Goal Patient Goal Type Associated Problems Recent Progress Patient-Stated? Author Medication Management General On track( 023 11:02 AM TANK TRUCK ENGINE MECHANIC) No Rena Cross RN Note: Expected end date: Ongoing Interventions: Take all medications as prescribed Let your doctor know right away about any changes in your medications Make sure to request a refill of your medication at least one week prior to your last dose Procedures Procedure Name Priority Date/Time Associated Diagnosis Comments HEPATITIS C ANTIBODY Routine 03/20/2016 12:11 PM CDT from Last 3 Months or Most Recently Relevant to Health Maintenance Results * HEPATITIS C ANTIBODY (03/20/2016 12:11 PM CDT) Pathologist [facility] Hepatitis C Antibody Non-react [facility] Comment: Hepatitis C Antibody screen indicates no serologic evidence of past or current infection with Hepatitis C Virus. Patients with unexplained liver disease who are immunocompromised or suspected of having acute Hepatitis C infection may benefit from Nucleic Acid Test (MARIO) for Hepatitis C Viral RNA to confirm Hepatitis C status. Blood specimen (specimen) BLOOD SPECIMEN / Unknown 03/20/2016 12:11 PM CDT 03/20/2016 12:59 PM CDT Reese Mejia MD LAB - CHEMISTRY [facility] [address] [place] [address], [facility] [place] [phone] from Last 3 Months or Most Recently Relevant to Health Maintenance Care Teams Welt Stitcher Relationship Specialty Start Date End Date Meena Block APRN-JIG [place] [place] [address] PCP - General Allergy and Immunology 05/03/24
[2024-11-18 11:18] LABS: Alpha Fetoprotein Tumor Marker 0.6 ng/mL
== END 2024-11-16 11:02 | disposition home or self-care (01) ==
LOC: ANHLAB 11:05
PROVIDERS: PCP Nurse Practitioner; Visit Provider Internal Medicine Gastroenterology
DX: K74.60 Unspecified cirrhosis of liver (principal); K75.81 Nonalcoholic steatohepatitis (NASH); K90.0 Celiac disease
CPT/HCPCS: 36415; 80053; 82105; 85025; 85610

== ENCOUNTER 2024-12-19 07:07 | Outpatient (CLI) | payer OTHER, SELFPAY ==
--- OUTSIDE RECORDS SUMMARY | 2024-12-19 07:16 | XMS_ITS | Encounter Summary ---
Author Organization [facility] Address [address] [place] [address] Care Team Providers Care Cold Work Operator Name Role Phone Umair, Meena RASHMI Primary Care Provider [phone] Encounter Details Date Type Department Care Team (Late Contact Info) Description 06/21/2024 Abstract [facility] [address] [place] [address] Lisa Toscano MA Social History Tobacco Use Types Packs/Day Years Used Date Smoking Tobacco: Never Smokeless Tobacco: Never Alcohol Use Standard Drinks/Week Comments No 0 (1 standard drink = 0.6 oz pur e alcohol) AUDIT-C Answer Date Recorded Frequency of Alcohol Consumption Never 09/29/2018 Average Number of Drinks Not on file 019 Frequency of Binge Drinking Not on file 01/2019 Comments No Sex and Gender Information Value Date Recorded Sex Assigned at Not on file Legal Sex Female 11:30 PM CDT Gender Identity Female 05/20/2022 8:51 AM CDT Sexual Orientation Not on file documented as of this encounter Plan of Treatment Upcoming Encounters Date Type Department Care Team (Late Contact Info) Description 06/30/2025 9:15 AM FINANCIAL AID ADVISOR Office Visit [facility] [address] [place] [phone] Christian Ca MD [facility] [address] [place], [place] [id number] documented as of this encounter Procedures Procedure Name Priority Date/Time Associated Diagnosis Comments IRON SAT PANEL (IRON,IBC,%SAT) Routine 06/20/2024 IRON BINDING TEST Routine 06/20/2024 IRON Routine 06/20/2024 documented in this encounter Results * IRON (06/20/2024) IRON 75 37 - 170 06/20/2024 us Default History Genericprovider LABORATORY Final Result * IRON BINDING TEST (06/20/2024) IRON BINDING CAPACITY 388 261 - 462 06/20/2024 us Default History Genericprovider LABORATORY Final Result * IRON SAT PANEL (IRON,IBC,%SAT) (06/20/2024) IRON SATURATION 19 20 - 50 06/20/2024 us Default History Genericprovider LABORATORY Final Result documented in this encounter Visit Diagnoses Not on filedocumented in this encounter Care Teams Cold Work Operator Relationship Specialty Start Date End Date Meena Block [place] [address] [address] [place] [address] PCP - General NURSE PRACTITIONER 03/12/22 documented as of this encounter
--- OUTSIDE RECORDS SUMMARY | 2024-12-19 07:16 | XMS_ITS | Encounter Summary ---
Author Organization [facility] Address [address] [place] [address] Care Team Providers Care Ssis Ssrs Developer Name Role Phone Meena Block RETAIL SALES MERCHANDISER Primary Care Provider [phone] Reason for Visit * Reason Onset Date Comments Lab Results 06/22/2023 Encounter Details Date Type Department Care Team (Late st Contact Info) Description 06/22/2023 ideasoft Message Enc [facility] Family Medicine - [address] [address] Meena Block NP [address] [place] [address] Bloodwork Social History Tobacco Use Types Packs/Day Years [...] on file documented as of this encounter Progress Notes * Ifrah Webb MA - 06/22/2023 10:46 AM CDT Called pt and went over labs, pt voiced understanding, and will re check labs in 6 months. Pt askedfor us to fax them to her and she will take them to [facility] lab to have them drawn. * Ifrah Webb MA - 06/22/2023 10:46 AM CDTFrom: Sundeep WALTERS To: Meena Umair Sent: 06/22/2023 10:37 AM CDT Subject: Bloodwork I faxed over my results from my bloodwork on 06.15.23. I am needing to know what steps are next from those results. I was taking a antibiotic and my ankles never swelled. I quit taking the antibioticand the started swelling again. I am wearing compress socks so hope it helps. Please let me know what I should do. Eryn cooney documented in this encounter Plan of Treatment Upcoming Encounters Date Type Department Care Team (Late st Contact Info) Description 06/30/2025 9:15 AM AUDITOR/QUALITY Office Visit [facility] [phone] Christian Ca MD [address] [address] documented as of this encounter Visit Diagnoses Not on filedocumented in this encounter Care Teams Ssis Ssrs Developer Relationship Specialty Start Date End Date [place] [address] PCP - General NURSE PRACTITIONER 03/12/22 documented as of this encounter
--- OUTSIDE RECORDS SUMMARY | 2024-12-19 07:16 | XMS_ITS | Encounter Summary ---
Author Organization [facility] Address [address] [place] [address] Care Team Providers Care Roll Cutter Name Role Phone Meena Block FABRIC MACHINE OPERATOR Primary Care Provider Reason for Visit * Reason Onset Date Comments Question 03/18/2024 Encounter Details Date Type Department Care Team (Late st Contact Info) Description 03/18/2024 Aprovecha.comhart Message Enc [facility] Family Medicine [address] [address] Meena Block NP [address] [place] [phone] Medication Social History Tobacco Use Types Packs/Day Years [...] as of this encounter Progress Notes * Marie Swanson - 03/22/2024 3:04 PM CDT Patient is wanting to know what the status of her LessonLabhart message is . Please follow up. documented in this encounter Plan of Treatment Upcoming Encounters Date Type Department Care Team (Late st Contact Info) Description 06/30/2025 9:15 AM TRUCK DRIVER RUBBISH COLLECTOR Office Visit [facility] [address] [place] [phone] Christian Ca MD [facility]. [facility] [address] [place] [address] documented as of this encounter Visit Diagnoses Not on filedocumented in this encounter Care Teams Roll Cutter Relationship Specialty Start Date End Date Meena Block [place] [address] PCP - General NURSE PRACTITIONER 03/12/22 documented as of this encounter
--- OUTSIDE RECORDS SUMMARY | 2024-12-19 07:16 | XMS_ITS | Encounter Summary ---
Author Organization [facility] Address [address] [place] [address] Care Team Providers Care Contract Management Specialist Name Role Phone Meena Block ENVELOPE FOLDING MACHINE OPERATOR Primary Care Provider [phone] Encounter Details Date Type Department Care Team (Late st Contact Info) Description 06/24/2023 [employer] Message Enc [facility] Family Medicine [facility] [address] [place] [phone] Meena Block NP [address] [place], [place] [phone] Orders Social History Tobacco Use Types Packs/Day Years [...] Progress Notes * Ifrah Webb MA - 06/25/2023 9:26 AM CDTFrom: Sundeep WALTERS To: Meena Block Sent: 06/24/2023 7:37 PM CDT Subject: Orders I was reviewing things in [facility] and see there are orders for Hemoglobin Glycosylated expected date 09.10.23 expiration date 06.10.24. Not sure what this is for and was just told about this order. If this is something that I need to do please let me know. I have a cardiology appointment on July 24 @3pm with Dr Ca. I???m just a little confused about what???s going on. Sundeep documented in this encounter Plan of Treatment Upcoming Encounters Date Type Department Care Team (Late st Contact Info) Description 06/30/2025 9:15 AM MAIL EXAMINER Office Visit [facility] [address] [place] [phone] Christian Ca MD [facility] [address] [place] [address] documented as of this encounter Visit Diagnoses Not on filedocumented in this encounter Care Teams Contract Management Specialist Relationship Specialty Start Date End Date Meena Block NP [address] [place], [place] [phone] PCP - General NURSE PRACTITIONER 03/12/22 documented as of this encounter
--- OUTSIDE RECORDS SUMMARY | 2024-12-19 07:16 | XMS_ITS | Encounter Summary ---
Author Organization [facility] Address [address] [place] [address] Care Team Providers Care Sales Representative Name Role Phone Soren Alcantara MD Primary Care Provider [phone] Patricia Choi NP Primary Care Provider + Meena Block SOLE LEATHER CUTTING MACHINE OPERATOR Primary Care Provider [phone] Encounter Details Date Type Department Care Team (Late st Contact Info) Description 11/02/2000 Abstract [facility] Conversion Md, Generic Conversion, Social History Tobacco Use Types Packs/Day Years Used Date Smoking Tobacco: Never Assessed Comments Unknown Sex and Gender Information Value Date Recorded Sex Assigned at Not on file Legal Sex Female 11:30 PM CDT Gender Identity Female 05/20/2022 8:51 AM CDT Sexual Orientation Not on file documented as of this encounter Plan of Treatment Upcoming Encounters Date Type Department Care Team (Late st Contact Info) Description 06/30/2025 9:15 AM COMMISSIONER OF OFFICIALS [facility] [address] [place] [phone] Christian Ca MD [address] [phone] [place], [place] [address] documented as of this encounter Visit Diagnoses Not on filedocumented in this encounter Care Teams Sales Representative Relationship Specialty Start Date End Date Soren Alcantara MD PCP - General FAMILY PRACTICE 09/29/18 02/20/22 Patricia Choi NP [address] [address] PCP - General Nurse Practitioner Family 02/21/2202/21 [place]ena [place] [address] PCP - General NURSE PRACTITIONER 03/12/22 documented as of this encounter
--- OUTSIDE RECORDS SUMMARY | 2024-12-19 07:17 | XMS_ITS | Clinical Summary ---
Author Organization [facility] Address [address] [place] [address] Care Team Providers Care Drafter Directional Survey Name Role Phone Meena Block RONY-GASKET WINDER Primary Care Provider [phone] [facility],non-owned Affiliates and Associated Physician Practices is amultiple site organization consisting of ambulatory clinics and hospital sitesin [place], [place], [place] and [place]. This disclosure is being madepursuant to the Care Everywhere program and may not contain all information available regarding this patient. Last updated 18.[facility] Allergies No known active allergies Medications * Be aware that medications may not be up to date on this document. Alwaysverify current medications with the patient. metFORMIN (GLUCOPHAGE) 1000 MG tablet Take 1 (one) tablet by mouth 2 times daily with morning and evening meal Active losartan (COZAAR) 25 MG tabletIndicati ons:Hypertensi on Take 2 (two) tablets by mouth once daily Reasons: High Blood Pressure Active Ozempic, 2 MG/DOSE, 8 MG/3ML pen INJECT 1 SYRINGE SUBCUTANEOUSLY ONCE A WEEK 10/20/19 24 Active vitamin D, cholecalcifero l, 50 MCG (2000 UT) tablet Take 1 (one) tablet by mouth once daily Active loratadine (Claritin) 10 MG tablet Take 1 (one) tablet by mouth once daily Active rosuvastatin (CRESTOR) 5 MG tablet Take 2 (two) tablets by mouth at bedtime 025 Discontin ued(List Clean-Up) furosemide (Lasix) 20 MG tablet Take 1 (one) tablet by mouth once daily as needed 10/25/19 24 025 Discontin ued(Tx Complete) omeprazole (PriLOSEC) 40 MG capsule TAKE 1 CAPSULE BY MOUTH ONCE DAILY 15-30 MINUTES BEFORE A MEAL 90 capsule 1 08/01/20 24 025 Discontin ued(Tx Complete) Active Problems Problem Noted Date Diagnosed Date NAFLD (nonalcoholic fatty liver disease) 020 Overview (11/30/2024): 07/12/20 Fibroscan CAP 320, LSM 11.0 kPa 09/10/21 Fibroscan CAP 320, LSM 21.8 kPa 02/25/22 Fibroscan CAP 285, LSM 15.0 kPa 09/09/22 Fibroscan CAP 344, LSM 17.8 kPa 11/28/24 Fibroscan CAP 201, LSM 9.5 kPa Elevated ferritin 12/30/2018 Elevated liver enzymes 12/30/2018 Migraine 02/26/2012 HTN (hypertension) 02/26/2012 Hypercholesteremia 02/26/2012 Encounters Date Type Department Care Team Description 11/28/2024 2:00 PM CDT Office Visit [facility] [place] [address] [place] [phone] Abel Adam MD Nonalcoholic steatohepatitis (WORTHY) (Primary Dx); NAFLD (nonalcoholic fatty liver disease); Celiac disease (HCC) 11/28/2024 1:30 PM CDT Procedure visit [facility] - [address] [phone] Abel Adam MD NAFLD (nonalcoholic fatty liver disease) ; Nonalcoholic steatohepatitis (WORTHY); Celiac disease (HCC); Liver cirrhosis secondary to WORTHY (HCC) 11/28/2024 12:27 PM CDT - 11/28/2024 11:59 PM CDT Hospital Encounter [facility] [address] [place] [address] Abel Adam MD Discharge Disposition: Home or Self Care 11/28/2024 Travel from Last 3 Months Immunizations Immunization Administration Dates Next Due COVALANIS BECKMAN PRIMARY 18+YR 11/28/2020 Covalanis Monique primary monovalent 12+ yr 0.5mL Family History [...] more drinks on one occasion? Never 11/22/2021 Comments No Sex and Gender Information Value Date Recorded Sex Assigned at Not on file Legal Sex Female 6:11 AM VP SCIENTIFIC AFFAIRS Gender Identity Not on file Sexual Orientation Not on file Last Filed Vital Signs Vital Sign Reading Time Taken Comments Blood Pressure 146/88 11/28/2024 1:26 PM CDT Pulse 98 11/28/2024 1:26 PM CDT Temperature 36.8 C (98.2 F) 11/28/2024 1:26 PM CDT Respiratory Rate 12 11/28/2024 1:26 PM CDT Oxygen Saturation 100% 11/28/2024 1:26 PM CDT Inhaled Oxygen Concentration - - Weight 58.4 kg (128 lb 12.8 oz) 11/28/2024 1:26 PM CDT Height 165.1 cm (5' 5 ) 11/28/2024 1:26 PM CDT Body Mass Index 21.43 11/28/2024 1:26 PM CDT Plan of Treatment Upcoming Encounters Date Type Department Care Team (Late st Contact Info) Description 11/27/2025 1:00 PM CDT Procedure visit [facility] [place] [address] [facility] [place] [address] 11/27/2025 1:30 PM CDT Office Visit [facility] [address] [place] [phone] Abel Adam MD [address] [place] [address] [place] [address] Health Maintenance Due Date Last Done Comments [...] VACCINE (1 of 2) 2017 COVID-19 VACCINE (3 - season) 2024 07/15/2021, 11/28/2020 DEPRESSION SCREENING 08/24/2024 INFLUENZA VACCINE (Season Ended) 2025 MAMMOGRAM 09/09/2026 09/09/2024, 08/24, 08/14/2023, Additional history exists LIPID TESTING 06/11/2028 06/11/2023 HEPATITIS C SCREENING Completed 03/20/2016 HIB VACCINE [...] Patient-Stated? Author Medication Management General On track( 025 1:33 PM CDT) No Cross, Rena E, RN Note: Expected end date: Ongoing Interventions: Take all medications as prescribed Let your doctor know right away about any changes in your medications Make sure to request a refill of your medication at least one week prior to your last dose Procedures Procedure Name Priority Date/Time Associated Diagnosis Comments IN LIVER ELASTOGRAPHY Routine 11/28/2024 1:11 PM CDT NAFLD (nonalcoholic fatty liver disease) Nonalcoholic steatohepatitis (WORTHY) Celiac disease (HCC) Liver cirrhosis secondary to WORTHY (HCC) US ABDOMEN LIMITED Routine 11/28/2024 1: 06 PM CDT NAFLD (nonalcoholic fatty liver disease) Nonalcoholic steatohepatitis (WORTHY) Celiac disease (HCC) Liver cirrhosis secondary to WORTHY (HCC) LIPID PROFILE (EXTERAL RESULT ENTRY) Routine 06/11/2023 7:09 AM CDT HEPATITIS C ANTIBODY Routine 03/20/2016 12:11 PM CDT from Last 3 Months or Most Recently Relevant to Health Maintenance Results * IN LIVER ELASTOGRAPHY (11/28/2024 1:11 PM CDT) Narrative Brandon Dominguez MD - 11/28/2024 1:11 PM CDT Brandon Dominguez MD 11/30/2024 9:41 PM Diagnosis: NAFLD (nonalcoholic fatty liver disease) RN verified patient NPO for prior 3 hours. Procedure explained. Date of Exam: 11/28/2024 Liver Stiffness: (LSM, kPa) median: 9.5 IQR/Median% (ideally < 30%): 17% CAP (controlled attenuation parameter): 201 Technical Difficulty: None Ordering Provider: Dr Abel Adam Phone Fax Fibroscan interpretation: I have personally reviewed the Fibroscan report and associated tracings. The calculated Liver Stiffness Measurement (LSM, kPa) indicates that: The probability of advanced liver fibrosis is: moderate. The loss of ultrasound signal, (controlled attenuation parameter, CAP [dB/m]), indicates that the probability of hepatic steatosis is: low. Brandon Matthew MD The following criteria are used to indicate the probability of advanced (stage 3-4) fibrosis: < 7.0 kPa: low 7.0-8.9 kPa: low to moderate 9.0-14.9 kPa: moderate 15-20 kPa: high > 20 kPa: very high Liver stiffness > 12 kPa is associated with an increased risk of cirrhosis-related complications over the next 3-5 years (Maria A, 2022). Liver stiffness > 20 kPa is also associated with a high probability of complications of portal hypertension including varices and ascites. Liver stiffness > 50 kPa is associated with a high risk of variceal bleeding. These interpretations are based on the following published data: Maria A J, Kaylier m H, Luis M, Young C, Chucho M, Cure S, Roberto J, Suhailr P, Tall L, Canulissest CM, Kechagiakelsie S, S nchez Y, Dincustephan E, Ritchie A, Nevaeh M, Angelica J, Laya A and Chin M. Non-invasive tests accurately stratify patients with NAFLD based on their risk of liver-related events. J Hepatol (2021) 76: 7915-4052. Swetha PJ, Evelia M, Valentina M, et al. Accuracy of FibroScan controlled attenuation parameter and liver stiffness measurement in assessing steatosis and fibrosis in patients with nonalcoholic fatty liver disease. Gastroenterology 2019;156:6754-4930. Jose MS, Stefano R, Van Natsofia ROLLE, et al. Vibration-controlled transient elastography to assess fibrosis and steatosis in patients with nonalcoholic fatty liver disease. Clin Gastroenterol Hepatol 2019;17:156-163. Note that scores have been developed that incorporate the Fibroscan liver stiffness measurement from large cohorts of patients with liver biopsies to further refine the ability of Fibroscan to identify patients with MASH and advanced fibrosis. These include the FAST (Fibroscan-AST) score (Bruce, 2022) and the Agile3+ and Agile4 scores (Steph, 2023; Tricia, 2024). Bruce RAPP, Van Natta ML, Leonidas Almaraz, Kehinde A, et al. Validation of the accuracy of the FAST score for detecting patients with at-risk nonalcoholic steatohepatitis (WORTHY) in a [place] cohort and comparison to other non-invasive algorithms. PLoS ONE (2021) 17: u4096865. Steph AJ, Andre J, Michaela ZM, et al. Enhanced diagnosis of advanced fibrosis and cirrhosis in individuals with NAFLD using FibroScan-based Agile scores. J Hepatol (2022) 78: 247-259. Tricia et al. Vibration-controlled transient elastography scores to predict liver-related events in steatotic liver disease. TIERRA (2023) 331: 9212-8200 Fibroscan LSM can also be used with laboratory parameters without formulas to assess prognosis. According to the Baveno-VII criteria (Mckinney, 202), Fibroscan LSM <=15 kPa plus a platelet count of >=815c915/L rules out clinically significant portal hypertension (sensitivity and negative predictive value >90%) in patients with compensated advanced chronic liver disease. Mckinney R, Bianca J, Derrell-Adilia G, Giancarlo T, West C on behalf of the Baveno VII Faculty. Baveno VII--Renewing consensus in portal hypertension. J Hepatol (2021) 76: 959-974 Assessing the likelihood of advanced fibrosis in patients with intermediate liver stiffness measurement (LSM) by Fibroscan (e.g., 8-15 kPa) can be improved by also calculating the FIB-4 score (Jamaica et al. Hepatology Communications 2019;3:1575-6890) or NAFLD Fibrosis score (Horan et al. Clinical Gastroenterology and Hepatology 2019;17:5292-3393 using routine clinical data. Notes: 1. Fibroscan cannot reliably identify earlier stages of fibrosis (ie distinguish F0 from F1 and F2) and thus a histologic stage cannot be predicted from the Fibroscan reading. 2. Liver stiffness can be increased by factors other than fibrosis including passive congestion, infiltrative processes, active alcoholism, recent moderate alcohol consumption in the 2 weeks before the exam, biliary obstruction and marked inflammation. The interpretation of the Fibroscan result provided above may not have taken such clinical factors into account. 3. Identifying steatosis by an elevated CAP score (> 250 db/m) is useful for establishing a diagnosis of steatotic liver disease. However the severity of steatosis does not correlate with liver related outcomes. Disease etiology also influences Fibroscan cutoff values for fibrosis stages and the following cutoffs have been proposed (Damon et al, Clin Gastro Hepatol 2015; 13:27-36): Cutoffs for Stage 3 and Stage 4 fibrosis respectively: Hepatitis B: >9 and >11.7 kPa Hepatitis C: >9.5 and >12.5 kPa HCV-HIV: >11 and >14 kPa Cholestatic liver diseases: >10 and >17.9 kPa MASLD/MASH: >10 and >14 kPa CAP estimates of steatosis: normal <200 dB/m mild 200 to 250 dB/m moderate 250-290 dB/m substantial > 290 dB/m (Note that Fibroscan is not a quantitative measure of liver fat.) These criteria are estimates and may change as additional supporting data becomes available. (This additional interpretive data was last updated 08/26/24.) [email or web address] [facility] miss[facility] children's hospitalLift Worldwide.com/ngg-glfclhbr-qhqqofifzj us Abel Adam MD PROCEDURE/MINOR SURGIC AL ORDERABLES Final Result * US Abdomen Limited (11/28/2024 1:06 PM CDT) Anatomical Region Laterality Modality Abdomen Ultrasound 11/28/2024 2:41 PM CDT Impressions 11/28/2024 10:33 PM CDT Impression: Liver Visualization Score A: No or minimal limitations. US-1 Negative. Repeat surveillance US in 6 months. Hepatic cirrhosis with sequela of portal hypertension including splenomegaly. Report dictated by Troy Alexandra MD, (residential life director). I, Siri Ambrosio MD have personally reviewed and interpreted this examination/study. > Interpreting Provider: Siri Ambrosio MD on 11/28/2024 10:33 PM Narrative 11/28/2024 10:33 PM CDT PROCEDURE: US ABDOMEN LIMITED, DATE/TIME OF EXAM: 11/28/2024 1:07 PM, LOCATION [facility] INDICATION: K76.0: NAFLD (nonalcoholic fatty liver disease) K75.81: Nonalcoholic steatohepatitis (WORTHY) K90.0: Celiac disease (HCC) K75.81: Liver cirrhosis secondary to WORTHY (HCC) K74.60: Liver cirrhosis secondary to WORTHY (HCC) ADDITIONAL CLINICAL INFORMATION: Ordering Provider Reason For Exam: HCC screening COMPARISON: Ultrasound abdomen from 05/03/2024. Findings Liver Visualization Score: No or minimal limitations in liver visualization Liver Morphology: The liver has a coarse echotexture and nodular surface. Liver Observations: None. Main Portal Vein: Color Doppler evaluation demonstrates patency of the main portal vein. Hepatic Veins: Color Doppler evaluation demonstrates patency of the hepatic veins. Bile Ducts: The common bile duct is nondilated, measuring 2.8 mm. No intrahepatic or extrahepatic biliary dilation. Gallbladder: Gallbladder is absent. Ascites: No ascites is present. Spleen: The spleen measures 14.7 cm in length. Pancreas: The visible pancreas is normal in echogenicity. Right Kidney: The right kidney measures 8.9 cm in length. Limited views of the right kidney reveal no evidence of nephrolithiasis or hydronephrosis. No discrete mass identified. Procedure Note Siri Ambrosio MD - 11/28/2024 PROCEDURE: US ABDOMEN LIMITED, DATE/TIME OF EXAM: 11/28/2024 1:07 PM, LOCATION [facility] INDICATION: K76.0: NAFLD (nonalcoholic fatty liver disease) K75.81: Nonalcoholic steatohepatitis (WORTHY) K90.0: Celiac disease (HCC) K75.81: Liver cirrhosis secondary to WORTHY (HCC) K74.60: Liver cirrhosis secondary to WORTHY (HCC) ADDITIONAL CLINICAL INFORMATION: Ordering Provider Reason For Exam: HCC screening COMPARISON: Ultrasound abdomen from 05/03/2024. Findings Liver Visualization Score: No or minimal limitations in liver visualization Liver Morphology: The liver has a coarse echotexture and nodular surface. Liver Observations: None. Main Portal Vein: Color Doppler evaluation demonstrates patency of the main portal vein. Hepatic Veins: Color Doppler evaluation demonstrates patency of the hepatic veins. Bile Ducts: The common bile duct is nondilated, measuring 2.8 mm. No intrahepatic or extrahepatic biliary dilation. Gallbladder: Gallbladder is absent. Ascites: No ascites is present. Spleen: The spleen measures 14.7 cm in length. Pancreas: The visible pancreas is normal in echogenicity. Right Kidney: The right kidney measures 8.9 cm in length. Limited views of the right kidney reveal no evidence of nephrolithiasis or hydronephrosis. No discrete mass identified. Impression: Liver Visualization Score A: No or minimal limitations. US-1 Negative. Repeat surveillance US in 6 months. Hepatic cirrhosis with sequela of portal hypertension including splenomegaly. Report dictated by Troy Alexandra MD, (residential life director). I, Siri Ambrosio MD have personally reviewed and interpreted this examination/study. > Interpreting Provider: Siri Ambrosio MD on 0:33 PM Abel Adam MD US ORDERABLES Final Result * LIPID PROFILE (EXTERAL RESULT ENTRY) (06/11/2023 7:09 AM CDT) Cholesterol (EXTERNAL RESULT) 93 mg/dL OTHER LAB Triglycerides (EXTERNAL RESULT) 127 mg/dL OTHER LAB HDL (EXTERNAL RESULT) 27 mg/dL OTHER LAB LDL (EXTERNAL RESULT) 46 mg/dL OTHER LAB VLDL (EXTERNAL RESULT) OTHER LAB Chol HDL Ratio (External Result) OTHER LAB Blood BLOOD SPECIMEN / Unknown 06/11/2023 7:09 AM CDT Vannessa Hanks MD LAB - CHEMISTRY ORDERABLE S Final Result OTHER LAB * HEPATITIS C ANTIBODY (03/20/2016 12:11 PM CDT) Hepatitis C Antibody Non-react [facility]: Hepatitis C Antibody screen indicates no [...] 12:11 PM CDT 03/20/2016 12:59 PM CDT us Reese Mejia MD LAB - CHEMISTRY ORDERABLES Chanel l Result [facility] [address] [place] [address] from Last 3 Months or Most Recently Relevant to Health Maintenance Insurance [employer] Care Teams Drafter Directional Survey Relationship Specialty Start Date End Date Meena Block APRN-R[place] [address] PCP - General Allergy and Immunology 05/03/24
--- OUTSIDE RECORDS SUMMARY | 2024-12-19 07:17 | XMS_ITS | Clinical Summary ---
Author Organization [facility] Address [facility] [place] [address] Care Team Providers Care Nurse Special Name Role Phone Umair Meena CARABALLO Primary Care Provider [phone] Allergies No known active allergies Medications ONETOUCH VERIO test strip USE 1 STRIP TO CHECK GLUCOSE 3-4 TIMES DAILY 01/12/20 22 Active vitamin D2, ergocalciferol , (DRISDOL) 1.25 mg capsule Take 1 capsule (1.25 mg total) by mouth once a week. 09/28/19 23 Active OZEMPIC 2 mg/dose injection (PEN) INJECT 2 MG SUBCUTANEOUSLY ONCE A WEEK 03/02/20 23 Active furosemide (LASIX) 20 MG tablet take 1 tablet by mouth once daily as needed 90 tablet 06/09/20 24 Active losartan (COZAAR) 50 MG tablet Take 1 tablet by mouth once daily 90 tablet 2 07/14/20 24 Active metFORMIN (GLUCOPHAGE) 1000 MG tabletIndicati ons:Type 2 diabetes mellitus without complication, without long-term current use of insulin ([facility]/HCC) Take 1 tablet (1,000 mg total) by mouth daily with breakfast. 180 tablet 12/17/19 25 Active metFORMIN 1000 MG tabletIndicati ons:Type 2 diabetes mellitus without complication, without long-term current use of insulin ([facility] H[facility]/HCC) Take 1 tablet (1,000 mg total) by mouth 2 (two) times daily with meals. 180 tablet 08/28/19 22 025 Discontin ued(Sig Adjustmen t) omeprazole 40 MG capsule TAKE 1 CAPSULE BY MOUTH ONCE DAILY TAKE 15-30 MINUTES BEFORE A MEAL 12/23/19 22 025 Discontin ued(Side effects) rosuvastatin (CRESTOR) 10 MG tablet Take 1 tablet (10 mg total) by mouth daily. 90 tablet 3 06/17/20 24 025 Discontin ued(Side effects) Active Problems Problem Noted Date Diagnosed Date Celiac disease (HHS/HCC) 12/04/2021 Cirrhosis of liver ([facility]/HCC) 09/10/2021 NAFLD (nonalcoholic fatty liver disease) 020 Overview (01/17/2022): 07/12/20 Fibroscan CAP 320, LSM 11.0 kPa RLS (restless legs syndrome) 06/21/2020 Elevated ferritin level 02/08/2019 Elevated liver enzymes 11/30/2018 Type 2 diabetes mellitus wit hout complications ([facility] H[facility]/HCC) 07/16/2015 Cervical intraepithelial neoplasia grade 2 07/13 Hypertension 02/26/2012 Hypercholesteremia 02/26/2012 Migraine headache 02/26/2012 Encounters Date Type Department Care Team Description 12/17/2024 MyChart Message Enc [facility] [address] [address] Felicia Campos, TRY OUT PERSON Heart rate 12/16/2024 1:15 PM CDT Office Visit [facility] [address] [address] Christian Ca MD Thole, Kellsey R, TRY OUT PERSON Follow Up 12/16/2024 Travel from Last 3 Months Immunizations Immunization Administration Dates Next Due Shingrix 03/13/2021,12/21/2020 Tdap (Boostrix) 12/19/2018 Tdap (Historical Only-select from [employer]) 12/19/2018 Family History Medical History Relation Comments No Known Problems Brother COPD Father Cancer Father prostate Diabetes Father borderline Emphysema Father Heart Disease Father Hyperlipidemia Father Hypertension Father No Known Problems Maternal Aunt No Known Problems Maternal Grandfather No Known Problems Maternal Grandmother No Known Problems Maternal Uncle Heart Disease Mother No Known Problems Paternal Aunt No Known Problems Paternal Grandfather No Known Problems Paternal Grandmother No Known Problems Paternal Uncle No Known Problems Sister Relation Status Comments Brother Father Alive Maternal Aunt Maternal Grandfather Maternal Grandmother Maternal Uncle Mother Alive Paternal Aunt Paternal Grandfather Paternal Grandmother Paternal Uncle Sister Social History Tobacco Use Types Packs/Day Years Used Date Smoking Tobacco: Never Smokeless Tobacco: Never Tobacco Cessation:Counseling Given: Not Answered Alcohol Use Standard Drinks/Week Comments No 0 [...] AM CDT Sexual Orientation Not on file Last Filed Vital Signs Vital Sign Reading Time Taken Comments Blood Pressure 122/74 12/16/2024 1:11 PM CDT Pulse 105 12/16/2024 1:11 PM CDT Temperature 36.3 C (97.4 F) 06/10/2023 10:16 AM CDT Respiratory Rate 20 06/10/2023 10:16 AM CDT Oxygen Saturation 98% 12/16/2024 1:11 PM CDT Inhaled Oxygen Concentration - - Weight 59.4 kg (131 lb) 12/16/2024 1:11 PM CDT Height 165.1 cm (5' 5 ) 12/16/2024 1:11 PM CDT Body Mass Index 21.8 12/16/2024 1:11 PM CDT Plan of Treatment Upcoming Encounters Date Type Department Care Team (Late st Contact Info) Description 06/30/2025 9:15 AM WATCH ADJUSTER Office Visit [facility] [address] [place] [address] Christian Ca MD [facility]. [place] [address] [place], [place] [id number] Health Maintenance Due Date Last Done Comments Kidney Health Evaluation 1967 Annual Physical 1970 Hepatitis B Vaccines (1 of 3 - 19+ 3-dose series) 1986 Pneumococcal Vaccine: 50+ Years (1 of 2 - PCV) 1986 Cervical Cancer Screening Pap with HPV Testing (Age 30 to 64) Every 5 Years 1997 Cervical Cancer Screening Pap Smear (Age 30 to 64) Every 3 Years 05/17/2017 05/17/2014 Cervical Cancer Screening with HPV 05/17/2017 Lipid Panel 06/15/2020 06/15/2019, 10/22, 06/09/2018, Additional history exists Diabetes: Retinopathy Eye Exam 06/10/2021 06/10/2019 Hemoglobin A1C 12/11/2023 06/11/2023, 02/23, 08/20/2021, Additional history exists COVID-19 Vaccine ( season) 2024 07/15/2021, 11/28/2020 PHQ-2 (Physician [place]) 08/24/2024 Mammogram Screening 09/09/2026 09/09/2024, 08/14/2023, 05/23/2022, Additional history exists Colorectal Cancer Screening Colonoscopy (10 Years) 02/17/2028 02/16/2018 DTaP, Tdap and Td Vaccines (3 - Td or Tdap) 12/19/2028 12/19/2018, 12/19/2018 Hepatitis C Completed 03/20/2016 Zoster Vaccines Completed 03/13/2021, 12/21/2020 Meningococcal B Vaccine Aged Out No l onger eligible based on patient's age to complete this topic Meningococcal Vaccine Aged Out No cailin felicity eligible based on patient's age to complete this topic RSV Immunizations Under 20 Months Aged Out No longer eligible based on patient's age to complete this topic Procedures Procedure Name Priority Date/Time Associated Diagnosis Comments MG SCREENING IMPLANT W AAKASH RAMSEY DIGI Routine 09/09/2024 1:08 PM WATCH ADJUSTER Encounter for screening mammogram for malignant neoplasm of breast Encounter for screening for malignant neoplasm of cervix Screening for HPV (human papillomavirus) OUTSIDE LAB (SCAN ORDER) Routine 06/11/2023 HEALTH FAIR WITH LIPID Routine 06/15/2019 1:00 AM CDT DILATED EYE EXAM (SCAN) Routine 06/10/2019 COLONOSCOPY GENERIC (SCAN ORDER) Routine 02/16/2018 OUTSIDE CYTOPATH CERV/VAG INTERPRET (PAP) (SCAN ORDER) Routine 05/17/2014 from Last 3 Months or Most Recently Relevant to Health Maintenance Results * MG SCREENING IMPLANT W AAKASH MUSTAFA DIGI (09/09/2024 1:08 PM WATCH ADJUSTER) Anatomical Region Laterality Modality Breast Bilateral Mammography 09/09/2024 2:24 PM WATCH ADJUSTER Impressions 09/09/2024 2:25 PM WATCH ADJUSTER IMPRESSION: No suspicious mammographic findings. Recommendation: 1. Routine Screening, Bilateral Assessment: ACR BI-RADS 2 - BENIGN FINDING(S) Ordered By: BREONNA YUSUF Interpreted By: Dash Beasley, 09/09/2024 2:24 PM Narrative 09/09/2024 2:25 PM WATCH ADJUSTER [address] [address] Examination: Screening bilateral mammogram Exam Date/Time: 09/09/2024 12:55 PM Clinical history: No current complaints Comparison: 08/14/2023 Technique: Digital screening mammography of both breasts was performed. Breast tomosynthesis acquisitions were obtained and reviewed. This study was read with the assistance of a computer-aided detection system. Tissue density: There are scattered areas of fibroglandular density. Findings: No suspicious masses, malignant appearing calcifications, skin thickening or other abnormalities are present. No significant change from the prior exam. us Breonna Yusuf MD MAMMO Final Result * OUTSIDE LAB (SCAN) (06/11/2023) HGB A1C 5.0 % [facility] MICROALBUMIN (U) 9.0 [facility] MICROALB/CREAT 11.2 [facility] CREATININE (U) 80.5 [facility] 06/11/2023 us [facility] Scanned SCANNING Final Resu lt [facility] * (ABNORMAL) HEALTH FAIR WITH LIPID (06/15/2019 1:00 AM CDT) GLUCOSE 229(H) 70 - 99 MG/DL 06/18/2019 7:[address] [facility] BUN 15 7 - 18 MG/DL 06/18/2019 7:[address] [facility] SODIUM S/P/B 139 136 - 145 MMOL/L 06/18/2019 7:[address] [facility] POTASSIUM S/P/B 4.7 3.5 - 5.1 MMOL/L 06/18/2019 7:[address] [facility] CHLORIDE S/P/B 101 100 - 108 MMOL/L 06/18/2019 7:[address] [facility] CO2 25.6 21 - 32 MMOL/L 06/18/2019 7:[address] [facility] CREATININE S/P/B 0.87 0.55 - 1.02 MG/DL 06/18/2019 7:[address] [facility] CALCIUM S/P/B 9.4 8.5 - 10.1 MG/DL 06/18/2019 7:[address] [facility] ALBUMIN S/P/B 4.0 3.4 - 5.0 G/DL 06/18/2019 7:[address] [facility] TOTAL PROTEIN S/P/B 7.5 6.4 - 8.2 G/DL 06/18/2019 7:[address] [facility] BILIRUBIN TOTAL S/P/B 0.4 0.2 - 1.2 MG/DL 06/18/2019 7:[address] [facility] ALT 138(H) 14 - 55 U/L 06/18/2019 7:03 PM [facility] AST 123(H) 15 - 37 U/L 06/18/2019 7:03 PM [facility] ALKALINE PHOSPHATASE S/P/B 90 50 - 136 U/L 06/18/2019 7:03 PM [facility] A/G RATIO 1.1 1.0 - 2.0 RATIO 06/18/2019 7:03 PM [facility] CHOLESTEROL 164 <200 MG/DL 06/18/2019 7:03 PM [facility] TRIGLYCERIDES 287(H) <150 MG/DL 06/18/2019 7:03 PM [facility] HDL 26(L) >40.0 MG/DL 06/18/2019 7:03 PM [facility] LDL (CALCULATED) 81 <100 MG/DL 06/18/2019 7:03 PM [facility] LIPID INTERPRETATION 06/18/2019 7:03 PM [facility] Comment: NIH CONCENSUS REPORT RECOMMENDATIONS: ADULT CHILD LOW RISK: CHOLESTEROL <200 <170 TRIGLYCERIDE <150 --- HDL >=60 --- LDL <100 <110 BORDERLINE: CHOLESTEROL 200-239 170-199 TRIGLYCERIDE 150-199 --- HDL 40-59 --- LDL 100-159 110-129 HIGH RISK: CHOLESTEROL >=240 >=200 TRIGLYCERIDE >=200 --- HDL <40 --- LDL >=160 >=130 TSH 3.486 0.358 - 3.74 uIU/ML 06/18/2019 7:03 PM [facility] Comment: HIGH DOSES OF BIOTIN MAY INTERFERE WITH THIS TEST RESULT. CORRELATION TO CLINICAL HISTORY AND PRESENTATION RECOMMENDED. WBC 5.5 4.8 - 10.8 x10'3/uL 06/15/2019 2:07 PM [facility] RBC 4.32 4.10 - 5.10 x10'6/uL 06/15/2019 2:[address] [facility] HGB 11.9(L) 12.0 - 16.0 G/DL 06/15/2019 2:[address] [facility] HCT 39.1 36 - 46 % 06/15/2019 2:[address] [facility] MCV 90.5 80 - 100 FL 06/15/2019 2:[address] [facility] MCH 27.5 26.0 - 34.0 PG 06/15/2019 2:[address] [facility] MCHC 30.4(L) 31.0 - 37.0 G/DL 06/15/2019 2:[address] [facility] PLT 169 150 - 350 x10'3/uL 06/15/2019 2:[address] [facility] 06/15/2019 1:00 AM CDT us Gama Snowden MD LABORATORY Final Result Performing Organization Address City/[facility] [place]/ZIP Co de Phone Number [facility] [address] [place] [address], [place] [phone] * DILATED EYE EXAM (06/10/2019) us Documents Scanned SCANNING Final Result * COLONOSCOPY (02/16/2018) us Documents Scanned SCANNING Final Result [facility] * PAP SMEAR (05/17/2014) 05/17/2014 us Doc Hospital Scanned SCANNING Final Resul t Performing Organization Address City/[facility] [place]/ZIP Co de Phone Number [facility] from Last 3 Months or Most Recently Relevant to Health Maintenance Insurance [employer] Care Teams Nurse Special Relationship Specialty Start Date End Date [place] [address] PCP - General NURSE PRACTITIONER 03/12/22
--- OUTSIDE RECORDS SUMMARY | 2024-12-19 07:17 | XMS_ITS | Encounter Summary ---
Author Organization [facility] Address [address] [place] [address] Care Team Providers Care Discovery Guide Name Role Phone Umair Meena RASHMI Primary Care Provider [phone] Encounter Details Date Type Department Care Team (Late st Contact Info) Description 07/14/2024 [employer] Message [facility] [address] [place] [address] Felicia Campos NP [address] [phone] Leg cramps Social History Tobacco Use Types Packs/Day Years [...] as of this encounter Progress Notes * Felicia Campos NP - 07/14/2024 2:26 PM CST Called patient. Stopping crestor ECTIONAL CASE RECORDS SUPERVISOR documented in this encounter Plan of Treatment Upcoming Encounters Date Type Department Care Team (Late st Contact Info) Description 06/30/2025 9:15 AM CORRECTIONAL CASE RECORDS SUPERVISOR Office Visit [facility] [address] [place] [address] Christian Ca MD [facility] [address] [place] [address] documented as of this encounter Visit Diagnoses Not on filedocumented in this encounter Care Teams Discovery Guide Relationship Specialty Start Date End Date Meena Block [place] [address] PCP - General NURSE PRACTITIONER 03/12/22 documented as of this encounter
--- OUTSIDE RECORDS SUMMARY | 2024-12-19 07:17 | XMS_ITS | Encounter Summary ---
Author Organization [facility] Address [address] [place] [address] Care Team Providers Care Tank Builder Supervisor Name Role Phone Soren Alcantara MD Primary Care Provider [phone] Patricia Choi NP Primary Care Provider + Meena Block BRANCH COORDINATOR Primary Care Provider Encounter Details Date Type Department Care Team (Late Contact Info) Description 02/02/2019 Therapy Plan [facility] [address] [place] [address] Reese Mejia MD Social History Tobacco Use Types Packs/Day Years [...] (Late Contact Info) Description 06/30/2025 9:15 AM STEAMER GUM CANDY Office Visit [facility] [address] [place] [phone] Christian Ca MD [facility] [address] [place] [address] documented as of this encounter Visit Diagnoses Not on filedocumented in this encounter Care Teams Tank Builder Supervisor Relationship Specialty Start Date End Date Soren Alcantara MD PCP - General FAMILY PRACTICE 09/29/18 02/20/22 Patricia Choi NP [address] [address] PCP - General Nurse Practitioner Family 02/21/2202/21 Meena Block NP [address] [place], [place] [id number] PCP - General NURSE PRACTITIONER 03/12/22 documented as of this encounter
--- OUTSIDE RECORDS SUMMARY | 2024-12-19 07:17 | XMS_ITS | Encounter Summary ---
Author Organization [facility] Address [address] [place] [address] Care Team Providers Care Multifocal Button Grinder Name Role Phone Soren Alcantara MD Primary Care Provider [phone] Patricia Choi NP Primary Care Provider + Meena Block AQUACULTURAL WORKER SUPERVISOR Primary Care Provider [phone] Encounter Details Date Type Department Care Team (Late Contact Info) Description 02/02/2019 Hospital Orders Only [facility] [address] [place] [address] Leisa Sharma RN Social History Tobacco Use Types Packs/Day Years [...] (Late Contact Info) Description 06/30/2025 9:15 AM ROLLING MACHINE OPERATOR Office Visit [facility] [address] [place] [phone] Christian Ca MD [facility] [address] [place] [address] documented as of this encounter Visit Diagnoses Not on filedocumented in this encounter Care Teams Multifocal Button Grinder Relationship Specialty Start Date End Date Soren Alcantara MD PCP - General FAMILY PRACTICE 09/29/18 02/20/22 Patricia Choi NP [address] [address] PCP - General Nurse Practitioner Family 02/21/2202/21 Meena Block NP [address] [place], [place] [id number] PCP - General NURSE PRACTITIONER 03/12/22 documented as of this encounter
--- OUTSIDE RECORDS SUMMARY | 2024-12-19 07:17 | XMS_ITS | Encounter Summary ---
Author Organization [facility] Address [address] [place] [address] Care Team Providers Care Rn Clinical Quality Name Role Phone UmairMeena cash INTERNET ARCHITECT Primary Care Provider [phone] Encounter Details Date Type Department Care Team ([facility] Contact Info) Description 12/17/2024 MyChart Message Enc [facility] [address] [address] Felicia Campos NP [address] [address] Heart rate Social History Tobacco Use Types Packs/Day Years [...] Upcoming Encounters Date Type Department Care Team ([facility] Contact Info) Description 06/30/2025 9:15 AM CLINICAL DATA ANALYST Office Visit [facility] [address] [place] [address] Christian Ca MD [facility] [address] [place] [address] documented as of this encounter Visit Diagnoses Not on filedocumented in this encounter Care Teams Rn Clinical Quality Relationship Specialty Start Date End Date Meena Block NP [place], [place] [phone] PCP - General NURSE PRACTITIONER 03/12/22 documented as of this encounter
--- OUTSIDE RECORDS SUMMARY | 2024-12-19 07:17 | XMS_ITS | Encounter Summary ---
Author Organization [facility] Address [address] [place] [address] Care Team Providers Care Harbor Master Name Role Phone UmairMeena cash BALE COVERER Primary Care Provider [phone] Encounter Details Date Type Department Care Team ([facility] Contact Info) Description 05/18/2024 MyChart Message Enc [facility] [address] [address] Felicia Campos NP [address] [address] Leg cramps Social History Tobacco Use Types [...] Upcoming Encounters Date Type Department Care Team ([facility] Contact Info) Description 06/30/2025 9:15 AM THERAPIST SPEECH Office Visit [facility] [address] [place] [phone] Christian Ca MD [facility] [address] [place] [address] documented as of this encounter Visit Diagnoses Not on filedocumented in this encounter Care Teams Harbor Master Relationship Specialty Start Date End Date [place] [address] [place] [address] PCP - General NURSE PRACTITIONER 03/12/22 documented as of this encounter
[2024-12-19 08:48] LABS: Cholesterol 193 mg/dL (0-200); HDL Direct 43 mg/dL; Triglycerides 155 mg/dL (<150)
[2024-12-19 08:59] LABS: LDL Cholesterol Direct 102 mg/dL
== END 2024-12-19 07:08 | disposition home or self-care (01) ==
PROVIDERS: PCP Nurse Practitioner
DX: E11.9 Type 2 diabetes mellitus without complications (principal); E78.00 Pure hypercholesterolemia, unspecified
CPT/HCPCS: 36415; 80061

== ENCOUNTER 2025-04-19 16:15 | Outpatient (CLI) | payer OTHER, SELFPAY ==
--- OUTSIDE RECORDS SUMMARY | 2019-07-28 07:25 | XMS_ITS | Continuity of Care Document ---
Author Organization [facility] Address [address] [place] [address] Phone Care Team Providers Care Computer Salesperson Retail Name Role Phone [facility], [place] Unavailable Unavailable Allergies, Adverse Reactions, Alerts Substance Reaction Status Criticality No Known Allergies Active No Inform ation Procedures Procedure Date OFFICE/OUTPATIENT VISIT, [facility] Review Of Records Advance Directives Directive Yes / No Effective Date File Name No Information Encounters Encounter Description Practice Location Reason(s) For Visit Diagnoses Date Provider Providers Copied on Encounter [facility], [address], [place], [place], [id number], [place] [phone] [facility] No Information 9 [facility]. [address], [address], [place], [place], [id number] , [place]. tel:[phone] OFFICE/OUTPAT IENT VISIT, [facility], [address], [place], [place], [id number], [place] tel:[phone] [facility] Back Pain (chief complaint) Other intervertebral disc degeneration, lumbosacral regionSacroilii tis, not elsewhere classified 9 Mahad Giordano. [address], [address], [place], [place], [id number] , [place]. tel:[phone] Referring Provider: Clarence Butcher, [address] [facility] [address], [place], [address]. tel:[phone] [facility], [address], [place], [place], [id number], [place] tel:[phone] [facility] No Information 9 Osmar fernandes [address], [address], [place], [place], [id number] , [place]. tel:[phone] Family History Family Member Type Diagnosis Age At Onset No Information Payers Payer name Insurance type Covered green party ID Elio william(vernon ACKERMAN [id number] Social History Type Description Quantity Date Captured Comments Sex Female Smoking Status No Information Chief Complaint And Reason For Visit No Information Reason For Referral Reason For Referral No Information History Of Present Illness Encounter Date Complaint History Of Prese nt Illness Back Pain Severity level i s 5. The problem is stable. It occurs persistently. Location of pain is lower back.There is no radiation of pain. The patient describes the pain as an ache, sharp and shooting. Symptoms are aggravated by sitting, standing and walking.The patient denies relieving factors. Pertinent negatives include bladder incontinence, bladder retention, bowel incontinence, bowel retention, diarrhea, numbness and weakness. Additional information: Pt is here for low back pain that does not radiate. She has tried chiro care which did not help & injections but only got relief for a short period of time. Back Pain (comments) Sundeep is seen in evaluation regarding her ongoing low back pain and hip pain. She does have intermittent pain that radiates into her left leg as well. This started on December 27 when she had a gentle twisting movement. She was seen by a chiropractor. She then saw her PCP for evaluation. She was given Ibuprofen and hydrocodone without relief. Cheema then went through more chiro care. She eventually had an MRI of the lumbar spine. She was evaluated at pain management. She underwent 2x COLETTE. She was also seen by a denture contour wire specialist. She had an EMG. This demonstrated some abnormal changes to the S1 nerve. She had a discogram by Dr. Sams. Functional Status Date Functional Assessmen t No Information Instructions Date Instruction Additional Infor mation Sundeep is seen in e valuation regarding her ongoing low back pain and hip pain. She does have intermittent pain that radiates into her left leg as well. This started on December 27 when she had a gentle twisting movement. She was seen by a chiropractor. She then saw her PCP for evaluation. She was given Ibuprofen and hydrocodone without relief. Cheema then went through more chiro care. She eventually had an MRI of the lumbar spine. She was evaluated at pain management. She underwent 2x COLETTE. She was also seen by a denture contour wire specialist. She had an EMG. This demonstrated some abnormal changes to the S1 nerve. She had a discogram by Dr. Sams.Currently all her extensive workup has been more for a discogenic pain. She also has nerve root irritation. There was significant loss of translation and miscommunication between SI (sacroiliac) and S1 injection.Her chart review was completed by our office, Leeroy schultz. After extensive evaluation discussion with both Edwin Prasad as well as myself, she initially discussed that she had a sacroiliac injection.Records review demonstrated that she had a S1 injection. This gave her a percent relief. Based on his miscommunication she was scheduled for a sacroiliac fusion. After a very lengthy conversation with her, and her daughter, we've elected to cancel the surgery. There was discussion about performing a sacroiliac injection. There would be an out of network cost associated with this. Based on the additional cost, she elected to return to [place]. I will be happy to assist in medication with additional physicians to help identify a surgeon I can't perform an sacroiliac fusion if necessary and warranted.Unfortunately, she did travel from [place] for surgery. This is the communication was paramount to canceling the surgery. I discussed with her that from an ethical standpoint as well as if she would ever have a complication, although not expected, this should be hard to justify proceeding with surgical treatment based on her current workup Related to Sacroiliitis, not elsewhere classified Assessments Type Assessment Date No Information Patient Care Teams Name Effective Dates (start - stop) Status Members No Information
--- OUTSIDE RECORDS SUMMARY | 2025-04-19 16:24 | XMS_ITS | Clinical Summary ---
Author Organization [facility] Address [address] [place] [address] Care Team Providers Care Intake Coordinator Name Role Phone Meena Block RONY-CURRICULUM DIRECTOR Primary Care Provider [phone] Source Comments [facility],non-owned Affiliates and Associated Physician Practices is amultiple site organization consisting of ambulatory clinics and hospital sitesin [place], [place]. This disclosure is being madepursuant to the Care Everywhere program and may not contain all information available regarding this patient. Last updated 18.[facility] Allergies No known active allergies Medications * [...] SUBCUTANEOUSLY ONCE A WEEK 10/20/19 24 Active calcium carbonate-rosie min D 600-400 MG-UNIT tablet Take 1 (one) tablet by mouth once daily Active linaCLOtide (Linzess) 145 MCG capsule Take 1 (one) capsule by mouth daily before breakfast Take on an empty stomach at least 30 minutes prior to first meal of the day. 30 capsule 3 04/17/20 25 Active vitamin D, cholecalcifero l, 50 MCG (1999 UT) tablet Take 1 (one) tablet by mouth once daily 025 Discontin ued(List Clean-Up) loratadine (Claritin) 10 MG tablet Take 1 (one) tablet by mouth once daily 025 Discontin ued(List Clean-Up) Active Problems Problem Noted Date Diagnosed Date [...] Encounters Date Type Department Care Team Description 04/17/2025 2:00 PM CDT Office Visit [facility] - [address] [phone] Fabio Lagos MD Constipation, unspecified constipation type (Primary Dx); Irritable bowel syndrome with constipation; Celiac disease (HCC) 04/17/2025 Travel 02/08/2025 Travel from Last 3 Months Immunizations Immunization Administration Dates Next Due COVID RK PRIMARY 18+YR 11/28/2020 Covid Moderna primary monovalent 12+ yr 0.5mL Family History [...] on file Legal Sex Female 6:11 AM TEST INSPECTION ENGINEER Gender Identity Not on file Sexual Orientation Not on file Last Filed Vital Signs Vital Sign Reading Time Taken Comments Blood Pressure 146/81 04/17/2025 1:54 PM CDT Pulse 92 04/17/2025 1:53 PM CDT Temperature 36.4 C (97.5 F) 04/17/2025 1:53 PM CDT Respiratory Rate 12 11/28/2024 1:26 PM CDT Oxygen Saturation 99% 04/17/2025 1:53 PM CDT Inhaled Oxygen Concentration - - Weight 59.6 kg (131 lb 6.4 oz) 04/17/2025 1:53 P M CDT Height 165.1 cm (5' 5) 04/17/2025 1:53 PM CDT Body Mass Index 21.87 04/17/2025 1:53 PM CDT Plan of Treatment Upcoming Encounters Date Type Department Care Team (Late st Contact Info) Description 07/24/2025 1:30 PM TEST INSPECTION ENGINEER Office Visit [facility] - [place] [address] [place] [phone] 11/27/2025 1:00 PM CDT Procedure visit [facility] - [place] [address] [place] [phone] 11/27/2025 1:30 PM CDT Office Visit [facility] - [place] [address] [place] [phone] Abel Adam MD [address] [place] [address] [place] [address] Health Maintenance Due Date Last Done Comments COLOGUARD (AGES 45-75) - COLON CA SCREENING 1967 COLON MONITORING 1967 COLONOSCOPY - COLON CA SCREENING 1967 CT COLONOGRAPHY - COLON CA SCREENING 1967 Colorectal Cancer Screening 1967 FIT - COLON CA SCREENING 1967 FLEX SIG - COLON CA SCREENING 1967 HIV SCREENING 1982 DTAP/TDAP/TD VACCINES (1 - Tdap) 1986 HEPATITIS B VACCINE (1 of 3 - 19+ 3-dose series) 1986 PNEUMOCOCCAL VACCINE 50+ (1 of 2 - PCV) 1986 PAP SMEAR 1988 ZOSTER VACCINE (1 of 2) 2017 COVID-19 VACCINE (3 - season) 2024 07/15/2021, 11/28/2020 DEPRESSION SCREENING 08/24/2024 INFLUENZA VACCINE (#1) 2025 MAMMOGRAM 09/09/2026 09/09/2024, 08/24, 08/14/2023, Additional history exists LIPID TESTING 12/19/2029 12/19/2024, 06/11/2023 HEPATITIS C SCREENING Completed 03/20/2016 HIB [...] Patient-Stated? Author Medication Management General On track( 1:54 PM CDT) No Rena Cross, RN Note: Expected end date: Ongoing Interventions: Take all medications as prescribed Let your doctor know right away about any changes in your medications Make sure to request a refill of your medication at least one week prior to your last dose Safety General On track( 025 1:54 PM CDT) No Caroline Umana, RN Note: Expected end date: ongoing Interventions: Your nurse will assess your risk for falls/injury each visit Use appropriate and safe transfer methods Make sure appropriate safety devices are available and within reach Review the fall prevention instruction sheet given to you during your visit Be aware of medications that could predispose you to falling Wear non-skid/rubber sole footwear Wear glasses/hearing aid Keep personal items within easy reach Use some light at night in your room Keep walking paths clutter free and clear Maintain an unobstructed path to the bathroom Procedures Procedure Name Priority Date/Time Associated Diagnosis Comments LIPID PROFILE (EXTERAL RESULT ENTRY) Routine 06/11/2023 7:09 AM CDT HEPATITIS C ANTIBODY Routine 03/20/2016 12:11 PM CDT from Last 3 Months or Most Recently Relevant to Health Maintenance Results * LIPID PROFILE (EXTERAL RESULT ENTRY) (06/11/2023 7:09 AM CDT) Cholesterol (EXTERNAL RESULT) 93 mg/dL OTHER LAB Triglycerides (EXTERNAL RESULT) 127 mg/dL OTHER LAB HDL (EXTERNAL RESULT) 27 mg/dL OTHER LAB LDL (EXTERNAL RESULT) 46 mg/dL OTHER LAB VLDL (EXTERNAL RESULT) OTHER LAB Chol HDL Ratio (External Result) OTHER LAB Blood BLOOD SPECIMEN / Unknown 06/11/2023 7:09 AM CDT us Vannessa Hanks MD LAB - CHEMISTRY ORDERABLE S Final Result OTHER LAB * HEPATITIS C ANTIBODY (03/20/2016 12:11 PM CDT) Hepatitis C Antibody Non-react [facility] Comment: Hepatitis C Antibody screen indicates no [...] CDT Reese Mejia MD LAB - CHEMISTRY ORDERABLES [facility]el l Result [facility] [address] [place] [address], [facility] [phone] from Last 3 Months or Most Recently Relevant to Health Maintenance Insurance [facility] Care Teams Intake Coordinator Relationship Specialty Start Date End Date Meena Block APRN-CURRICULUM DIRECTOR [place] [address] PCP - General Allergy and Immunology 05/03/24
[2025-04-21 13:08] LABS: Immunoglobulin A, Qn 265 mg/dL (87-352)
== END 2025-04-19 16:16 | disposition home or self-care (01) ==
PROVIDERS: PCP Nurse Practitioner
DX: K90.0 Celiac disease (principal)
CPT/HCPCS: 82784; 86231